=== PATIENT | female | born 1945 | race Caucasian/White ===

== ENCOUNTER → 2016-12-26 14:16 | Outpatient (CLI) | payer MEDICARE, OTHER ==
[2015-12-22 07:34] VITALS: BMI 23.3
[~2016-12-26 14:16] MED LIST: ANTIVERT25 MG PO; ASPIRIN EC81 MG PO; ATROVENT HFA12.9 GM; BYSTOLIC5 MG PO; CENTRUM SILVER1 TA2 PO; CLARITIN 10 MG10 MG PO; COMBIVENT INH14.7 GM; FLUTICASONE PRO16 GM NASAL; HUMALOG MIX 50/53 ML SC; HUMULIN N100 U/ML SC; KLONOPIN1 MG PO; LEVEMIR100 U/M1 SC; MINERAL OIL25 ML PO; MYRBETRIQ25 MG PO; NITROLINGUAL SP12 GM SL; NYSTATIN ORAL SU5 ML PO; OXYCODONE HCL10 MG PO; OYST-CAL-5001 TAB; PAMELOR10 MG PO; PEPCID20 MG PO; PLAVIX75 MG PO; PREMARIN45 GM VG; PREVACID30 MG PO; RESTORIL15 MG PO
== END | disposition home or self-care (01) ==
LOC: D.MRI 14:16
DX: G31.84 Mild cognitive impairment of uncertain or unknown etiology (principal)

== ENCOUNTER → 2017-03-12 09:23 | Outpatient (CLI) | payer MEDICARE, OTHER ==
[2015-12-22 07:34] VITALS: BMI 23.3
== END | disposition home or self-care (01) ==
LOC: D.RT 09:00
DX: J45.909 Unspecified asthma, uncomplicated (principal)

== ENCOUNTER → 2017-03-21 09:10 | Outpatient (CLI) | payer MEDICARE, OTHER | END | disposition home or self-care (01) | LOC: D.CATH 09:10 | DX: I25.119 Atherosclerotic heart disease of native coronary artery with unspecified angina pectoris (principal); J44.9 Chronic obstructive pulmonary disease, unspecified; I10 Essential (primary) hypertension; E11.9 Type 2 diabetes mellitus without complications; F17.200 Nicotine dependence, unspecified, uncomplicated; Z01.812 Encounter for preprocedural laboratory examination ==

== ENCOUNTER 2017-11-13 18:55 | Emergency (ER) | payer MEDICARE, OTHER ==
[2017-03-21 10:05] VITALS: BMI 24.6
== END 2017-11-13 21:25 | disposition home or self-care (01) ==
LOC: D.ER 18:55
DX: S70.02XA Contusion of left hip, initial encounter (principal); W19.XXXA Unspecified fall, initial encounter; Y93.89 Activity, other specified; Y92.89 Other specified places as the place of occurrence of the external cause; M51.36 Other intervertebral disc degeneration, lumbar region; M54.5 Low back pain; F17.200 Nicotine dependence, unspecified, uncomplicated

== ENCOUNTER → 2017-11-19 10:49 | Outpatient (CLI) | payer MEDICARE, OTHER ==
[2017-03-21 10:05] VITALS: BMI 24.6
== END | disposition home or self-care (01) ==
LOC: D.MRI 10:49
DX: S32.009A Unspecified fracture of unspecified lumbar vertebra, initial encounter for closed fracture (principal)

== ENCOUNTER 2018-01-20 13:46 | Emergency (ER) | payer MEDICARE, OTHER ==
[~2018-01-20] VITALS: Ht 165.1 cm; Wt 46.8 kg
[2018-01-20 13:58] VITALS: BP 133/70; Ht 165.1 cm; Wt 46.8 kg
[2018-01-20] MEDS ORDERED: ALENDRONATE SOD70 MG PO (14:00)
[2018-01-20] MEDS ORDERED: BIOTIN5 MG PO (14:01)
[2018-01-20] MEDS ORDERED: ZITHROMAX250 MG PO (14:01)
[2018-01-20] MEDS ORDERED: CALCIUM 600 +1 EAC3 PO (14:01)
[2018-01-20] MEDS ORDERED: ZOFRAN4 MG PO (14:03)
[2018-01-20] MEDS ORDERED: MEDROL4 MG PO (14:03)
[2018-01-20] MEDS ORDERED: MOVANTIK25 MG PO (14:04)
[2018-01-20] MEDS ORDERED: RESTORIL15 MG PO (14:05)
[2018-01-20 16:51] LABS: BASOPHILS 0.2 % (0-2); EOSINOPHILS 0.1 % (0-7); HEMOGLOBIN 14.6 g/dL (12-16); IMMATURE GRANULOCYTES 0.4 % (0-5); LYMPHOCYTES 12.9 % (15-50); MCH 32.5 pg (26.0-34.0); MCHC 35.6 g/dL (31.0-37.0); MCV 91.3 fL (80.0-100.0); MEAN PLATELET VOLUME 10.5 fL (7.4-10.4); NEUTROPHILS 81.4 % (40-80); PLATELET COUNT 399 10x3/uL (130-400); RBC 4.49 10x6/uL (4.00-5.40); RDW 14.2 % (11.5-14.5); WBC 12.5 10x3/uL (4.8-10.8)
[2018-01-20 17:22] LABS: ALBUMIN 3.4 g/dL (3.4-5.0); ANION GAP 12.9 mmol/L (8-16); BILIRUBIN - TOTAL 0.39 mg/dL (0.2-1.3); CALCIUM 9.7 mg/dL (8.5-10.1); CARBON DIOXIDE 29.2 mmol/L (21.0-32.0); CREATININE - SERUM 0.8 mg/dL (0.6-1.3); POTASSIUM - SERUM 4.1 mmol/L (3.5-5.1)
[2018-01-20 17:30] LABS: THYROID STIMULATING HORMONE 0.62 uIU/mL (0.36-3.74)
== END 2018-01-20 17:02 | disposition left against medical advice (07) ==
LOC: D.ER 13:46
PROVIDERS: Emergency Medicine
DX: K56.41 Fecal impaction (principal); K59.00 Constipation, unspecified; E11.8 Type 2 diabetes mellitus with unspecified complications; I10 Essential (primary) hypertension; J44.9 Chronic obstructive pulmonary disease, unspecified; F17.200 Nicotine dependence, unspecified, uncomplicated

== ENCOUNTER 2018-01-27 12:51 | Outpatient (CLI) | payer MEDICARE, OTHER ==
[~2018-01-27] VITALS: Ht 162.6 cm; Wt 46.8 kg
[~2018-01-27 12:51] MED LIST changes: +ALENDRONATE SOD70 MG PO; +BIOTIN5 MG PO; +CALCIUM 600 +1 EAC3 PO; +MEDROL4 MG PO; +MOVANTIK25 MG PO; +ZITHROMAX250 MG PO; +ZOFRAN4 MG PO
[2018-01-27 13:41] VITALS: BP 117/58; Ht 162.6 cm; Wt 46.8 kg
== END 2018-01-27 14:15 | disposition home or self-care (01) ==
LOC: D.OPS 12:51
DX: M81.0 Age-related osteoporosis without current pathological fracture (principal)

== ENCOUNTER → 2018-02-10 08:55 | Outpatient (CLI) | payer MEDICARE, OTHER ==
[2018-01-27 13:41] VITALS: BMI 17.7
== END | disposition home or self-care (01) ==
LOC: D.US 08:55
DX: N30.91 Cystitis, unspecified with hematuria (principal)

== ENCOUNTER 2018-03-06 08:43 | Outpatient (CLI) | payer MEDICARE, OTHER ==
[~2018-03-06] VITALS: Ht 162.6 cm; Wt 52.7 kg
--- NOTE | ~2018-03-06 | HEMODYNAMI ---
PATIENT:VERNON BOLTON MEDICAL RECORD: [id number] : 43 LOCATION:D.CAT ADMISSION DATE: 03/06/18 Generatedon:03/06/201811:40 Patient name: VERNON BOLTON Patient #: [id number] SSN: : Date of study: 03/06/2018 Page: Of Hemodynamic Procedure Report Patient Data Patient Demographics Procedure consent was obtained First Name: VERNON Gender: Female Last Name: HOANG : 1945 Middle Initial: JAY Age: 72 year(s) Patient #: [id number] Race: Additional ID: [id number] Contact details Address: [address] [place] [address] [facility] State: [place] City: [place] Zip code: [address] Past Medical History Allergies Allergen Reaction Date Comments Reported Other allergy 03/21/2017 DEMEROL, IBUPROFEN, SULFA Admission Admission Data Admission Date: 03/06/2018 Admission Time: 8:43 Height (in.): 65 BSA: 1.57 (m2) Height (cm.): 165.1 BMI: 19.3 (kg/m2) Weight (lbs.): 116 Weight (kg.): 52.62 Procedure Procedure Types Cath Procedure Diagnostic Procedure [facility] w/Coronaries PCI Procedure Coronary Stent Coronary Stent Initial Procedure Description Procedure Date Procedure Date: 03/06/2018 Procedure Start Time: 11:14 Procedure End Time: 11:33 Procedure Staff Name Function Leonie Talamantes RT Scrub Мария Simmons RN Nurse Shashank Delaney MD Performing Physician Ana Cristina Franco RT Monitor Lexx Dominique RT Label Printing Machinist Procedure Data Cath Procedure Fluoroscopy Diagnostic fluoroscopy Total fluoroscopy Time: 5.2 time: 5.2 min min Diagnostic fluoroscopy Total fluoroscopy dose: 827 dose: 827 mGy mGy Contrast Material Contrast Material Type Amount (ml) Isovue 300 134 Entry Location Entry Primary Successful Side Size Upsize Upsize Entry Closure Succes sful Closure Location (Fr) 1 (Fr) 2 (Fr) Remarks Device Remarks Femoral Right 5 Fr 6 Fr 7 Fr Exoseal artery Short Short Estimated blood loss: 10 ml Diagnostic catheters Device Type Used For End Catheter Placement MULTIPACK Pigtail 5 Fr Procedure catheter MULTIPACK JL 4.0 5Fr Procedure catheter MULTIPACK 3DRC 5Fr catheter MULTIPACK Pigtail 5 Fr Procedure catheter Procedure Complications No complications Procedure Medications Medication Administration Route Dosage Oxygen etCO2 Nasal cannula 2 l/min Lidocaine 2% added to field 20 Heparin Flush Bag added to field 2 bags (1000units/500ml NS) 0.9% NaCl I.V. 100 ml/hr Versed I.V. 0.5 mg Fentanyl I.V. 100 mcg Fentanyl I.V. 100 mcg Versed I.V. 0.5 mg Fentanyl I.V. 100 mcg Heparin Bolus I.V. 4000 units Fentanyl I.V. 100 mcg Hemodynamics Rest O2 Consumption: Estimated: 142.24 (ml/min) O2 Consumption indexed: Estimated:90. 6 (ml/min/m) Heart Rate: 68 (bpm) Snapshots Pre Cath Intra NCS Post Cath Vital Signs Time Heart Resp SPO2 etCO2 NIBP (mmHg) Rhythm Pain Sedation Rate (ipm) (%) (mmHg) Status Level (bpm) 11:07:55 74 28 98 0 167/76(137) NSR 0 (11) 10(A) , No pain 11:12:17 66 21 100 27.7 157/65(96) NSR 0 (11) 10(A) , No pain 11:16:33 72 12 100 33 132/70(112) NSR 0 (11) 10(A) , No pain 11:21:50 73 19 100 36 148/55(92) NSR 0 (11) 10(A) , No pain 11:27:20 87 15 100 29.3 144/68(109) NSR 0 (11) 10(A) , No pain 11:31:34 78 13 98 15 147/66(104) NSR 0 (11) 10(A) , No pain Medications Time Medication Route Dose Verified Delivered Reason Notes Effectiveness by by 11:11:56 Oxygen etCO2 2 Shashank Мария used for Nasal l/min Elaina Simmons flight surveyor cannula 11:12:43 Lidocaine 2% added 20ml Shashank Encarnacion for local to vial Elaina Delaney MD anesthetic field 11:12:49 Heparin Flush added 2 Shashank Shashank used for Bag to bags Elaina Delaney MD procedure (1000units/500ml field NS) 11:12:58 0.9% NaCl I.V. 100 Shashank Buffie Per physician ml/hr Elaina Simmons RN 11:14:07 Versed I.V. 0.5 Shashank Buffie for sedation mg Elaina Simmons RN 11:14:13 Fentanyl I.V. 100 Shashank Buffie for sedation mcg Elaina Simmons RN 11:17:09 Fentanyl I.V. 100 Shashank Buffie for sedation mcg Ealina Simmons RN 11:17:14 Versed I.V. 0.5 Shashank Buffie for sedation mg Elaina Simmons RN 11:20:21 Fentanyl I.V. 100 Shashank Buffie for sedation mcg Elaina Simmons RN 11:22:08 Heparin Bolus I.V. 4000 Shashank Buffie for verif ied units Elaina Simmons RN anticoagulation with dr delaney 11:29:14 Fentanyl I.V. 100 Shashank Buffie for sedation mcg Elaina Simmons RN Procedure Log Time Note 10:52:06 Diagnostic Cath status Elective 10:52:07 Lexx Suit RT(R) sent for patient. Start room use. 10:52:09 Time tracking: Regular hours (M-F 7:00 - 5:00) 10:52:14 Plan of Care:Hemodynamics will remain stable., Cardiac rhythm will remain stable., Comfort level will be maintained., Respiratory function will remain adequate., Patient/ family verbilizes understanding of procedure., Procedure tolerated without complication., Recovers from procedure without complications.. 10:52:19 Patient received from Pre/Post Procedure Room to CCL 2 Alert and oriented. Tansferred to table in Supine position. 10:52:21 Correct patient and procedure confirmed by team. 10:52:21 Warm blankets applied, and anoop hugger turned on for patient comfort. 10:52:29 H&P Date Dictated: 03/05/2018 Within 30 days and on chart., H&P Addendum completed by physician on day of procedure. (MUST COMPLETE FOR ALL OUTPATIENTS). 10:52:31 Pre-procedure instructions explained to patient. 10:52:32 Family in waiting room. 10:52:41 Patient NPO since Midnight. 11:04:09 Pt states she is not allergic to Versed that it "just hangs around like a bad drunk". pt states she did well with the sedation given last time. 11:06:44 Signed procedure consent form obtained from patient. 11:06:45 ECG and BP/O2 sat monitors applied to patient. 11:06:46 Vital chart was started 11:06:48 Baseline sample Acquired. 11:06:56 Rhythm: sinus rhythm 11:06:58 Full Disclosure recording started 11:07:06 Is the patient allergic to Iodine/contrast media? No. 11:07:07 Was the patient premedicated? Yes 11:07:12 Is patient on blood thinner?Yes 11:07:15 ACC The patient was administered the following blood thiners within the last 24 hours: ACCPlavix 11:07:21 Patient diabetic? Yes. 11:07:23 If diabetic: On Metformin? No 11:07:31 Snore? No 11:07:32 Sleep apnea? No 11:07:38 Airway obstruction? Yes COPD 11:07:52 Dentures? Yes in tight 11:07:57 Patient pain scale 0/10 ?. 11:08:33 IV patent on arrival in right antecubital with 0.9% NaCl at O. 11:08:42 Lab results completed and on chart. 11:08:46 Right groin area was prepped with chlora-prep and draped in sterile fashion 11:08:47 Sharps counted by scrub and verified by R.N. 11:08:47 Alarms reviewed by R. N. 11:08:48 Physician paged 11:09:34 Use device set Femoral Dx 11:09:35 ACIST Syringe (50223) opened to sterile field. 11:09:36 Medline Cath Pack ([id number]) opened to sterile field. 11:09:36 Bag Decanter (2002) opened to sterile field. 11:09:37 DIAGNOSTIC WIRE .035 260cm J wire (568280) opened to sterile field. 11:09:38 ACIST Hand Control (14494) opened to sterile field. 11:09:39 DIAGNOSTIC Multipack 5Fr catheter set (BO5079) opened to sterile field. 11:09:39 ACIST Manifold (49237) opened to sterile field. 11:09:40 PERCUTANEOUS ENTRY 19GA needle opened to sterile field. 11:09:40 Tegaderm 4 x 4 (1626W) opened to sterile field. 11:09:41 MICROPUNCTURE 4FR Cook (O20011) opened to sterile field. 11:09:52 SHEATH Prelude 5Fr 0.035 ([id number]-2J-80-035) opened to sterile field. 11:10:55 Patient Height : 65 inches 11:11:05 Patient Weight : 116 lbs 11:11:56 Oxygen 2 l/min etCO2 Nasal cannula was administered by Мария Simmons RN; used for procedure; 11:12:02 --------ALL STOP TIME OUT------ 11:12:02 Physician arrived 11:12:03 Final Timeout: patient, procedure, and site verified with staff and physician. All members of the team are in agreement. 11:12:06 Right groin site verified by team. 11:12:10 Physical assessment completed. ASA score P 2 - A patient with mild systemic disease as per Shashank Delaney MD. 11:12:43 Lidocaine 2% 20ml vial added to field was administered by Shashank Delaney MD; for local anesthetic; 11:12:49 Heparin Flush Bag (1000units/500ml NS) 2 bags added to field was administered by Shashank Delaney MD; used for procedure; 11:12:58 0.9% NaCl 100 ml/hr I.V. was administered by Мария Simmons RN; Per physician; 11:14:07 Versed 0.5 mg I.V. was administered by Мария Simmons RN; for sedation; 11:14:13 Fentanyl 100 mcg I.V. was administered by аМрия Simmons RN; for sedation; 11:14:38 Procedure started. 11:14:42 Local anesthetic to right femoral artery with Lidocaine 2% by Shashank Delaney MD.INITIAL ACCESS ONLY 11:15:00 A 5 Fr sheath was inserted into the Right Femoral artery 11:16:10 A MULTIPACK Pigtail 5 Fr catheter was advanced over the wire and used for Procedure. 11:16:18 EF : 40 % 11:16:22 LV gram done using STORY 11:16:24 Catheter removed. 11:16:50 A MULTIPACK JL 4.0 5Fr catheter was advanced over the wire and used for Procedure. 11:17:09 Fentanyl 100 mcg I.V. was administered by Мария Simmons RN; for sedation; 11:17:14 Versed 0.5 mg I.V. was administered by Мария Simmons RN; for sedation; 11:18:01 LCA angiography performed. 11:18:02 Catheter removed. 11:18:27 A MULTIPACK 3DRC 5Fr catheter was advanced over the wire and used for . 11:18:31 RCA angiography performed. 11:18:32 Catheter removed. 11:18:40 Sheath upsized to a 6 Fr Short. 11:19:50 INFLATOR Merit BasixCompak (TK1611) opened to sterile field. 11:19:51 CHOICE PT Extra Support 182cm wire ([id number]) opened to sterile field. 11:20:16 GUIDE 6FR 3DRC catheter ([id number]) opened to sterile field. 11:20:21 Fentanyl 100 mcg I.V. was administered by Мария Simmons RN; for sedation; 11:20:39 A MULTIPACK Pigtail 5 Fr catheter was advanced over the wire and used for Procedure. 11:20:56 Left leg runoff performed. 11:21:06 Right leg runoff performed. 11:21:10 Catheter removed. 11:21:11 Proceeding to intervention. 11:22:08 Heparin Bolus 4000 units I.V. was administered by Мария Simmons RN; for anticoagulation; verified with dr delaney 11:22:30 6 Fr 3DRC guide catheter was inserted over the wire 11:22:35 choice pt wire advanced. 11:24:46 Wire removed. unable to get back-up support 11:24:49 Guide Catheter removed. unable to get back-up support 11:25:20 GUIDE 7FR AR 2.0 catheter (PI6ZF24) opened to sterile field. 11:25:23 SHEATH 7FR Kermit (DFY381) opened to sterile field. 11:25:37 Sheath upsized to a 7 Fr Short. 11:25:53 7 Fr AR2 guide catheter was inserted over the wire 11:25:59 choice ex wire advanced. 11:27:43 Place stent Inflation Number: 1 A DEYANIRA RX 3.5 x 18 stent ([id number]) was prepped and advanced across the Dist RCA. The stent was deployed at 20 KERRY for 0:11 (min:sec). ::46 Inflation number: 2 The stent balloon was then re-inflated across the Dist RCA to 0 KERRY for 0:00 (min:sec). 11:28:07 Inflation number: 3 The stent balloon was then re-inflated across the Dist RCA to 21 KERRY for 0:06 (min:sec). 11:28:25 Inflation number: 4 The stent balloon was then re-inflated across the Dist RCA to 21 KERRY for 0:13 (min:sec). 11:29:14 Fentanyl 100 mcg I.V. was administered by Мария Simmons RN; for sedation; 11:29:16 Inflation number: 5 The stent balloon was then re-inflated across the Dist RCA to 23 KERRY for 0:09 (min:sec). 11:29:56 EXOSEAL 7Fr (EX700) opened to sterile field. 11:30:06 Wire removed. 11:30:07 Guide catheter removed. 11:30:17 Sheath removed intact; hemostasis achieved with Exoseal to the Right Femoral artery. 11:30:19 Procedure ended.(Physican Out) 11:30:27 Fluoroscopy time 05.20 minutes. 11:30:32 Fluoroscopy dose: 827 mGy 11:30:32 Flurop Dose total: 827 11:30:36 Contrast amount:Isovue 300 134ml. 11:30:37 Sharps counted by scrub and verified by R.N. 11:31:00 Insertion/operative site no bleeding no hematoma. 11:31:05 Post-op/insertion site Right Femoral artery dressed using a 4 x 4 and Tegaderm. 11:31:09 Post-procedure physical assessment completed. ASA score P 2 - A patient with mild systemic disease as per Shashank Delaney MD. 11:32:42 Estimated blood loss: 10 ml 11:32:43 Post procedure instruction explained to patient.Patient verbalizes understanding. 11:32:53 Procedure type changed to Cath procedure, Diagnostic procedure, LHC, LHC w/Coronaries, PCI procedure, Coronary Stent, Coronary Stent Initial 11:32:55 Procedure and supply charges have been captured, reviewed, submitted and are correct. 11:33:31 Procedure Complication : No complications 11:33:34 Vital chart was stopped 11:33:35 See physician's report for complete and final results. 11:33:36 Report given to Pre/Post Procedure Room. 11:33:39 Patient transfered to Pre/Post Procedure Room with Stretcher. 11:33:45 Full Disclosure recording stopped 11:33:45 Procedure ended. Intervention Summary Intervention Notes Time ActionType Lesion and Equipment Used Action# Pressure Duration Attributes 11:27:43 Place stent Dist RCA DEYANIRA RX 3.5 x 1 20 00:11 18 stent ([id number]) 11:27:46 Reinflate Dist RCA DEYANIRA RX 3.5 x 2 0 00:00 stent 18 stent balloon ([id number]) 11:28:07 Reinflate Dist RCA DEYANIRA RX 3.5 x 3 21 00:06 stent 18 stent balloon ([id number]) 11:28:25 Reinflate Dist RCA DEYANIRA RX 3.5 x 4 21 00:13 stent 18 stent balloon ([id number]) 11:29:16 Reinflate Dist RCA DEYANIRA RX 3.5 x 5 23 00:09 stent 18 stent balloon ([id number]) Device Usage Item Name Manufacture Quantity Catalog Number Hospital Part Current Minimal Lot# / Charge Number Stock Stock Serial# Code ACIST Syringe Acist 1 39775 896964 396519 788319 20 (32985) Medical Systems Inc Bag Decanter Microtek 1 2001S 392228 19738 956441 5 (2001S) Medical Inc. Medline Cath Cardinal 1 [id number] 845768 77922 074122 5 Pack Health ([id number]) DIAGNOSTIC WIRE St Patrice 1 153419 898620 389556 173369 30 .035 260cm J wire (952280) ACIST Hand Acist 1 25602 191841 550851 170687 5 Control (81766) Medical Systems Inc ACIST Manifold Acist 1 35629 014442 240153 674871 5 (16948) Medical Systems Inc DIAGNOSTIC Cardinal 1 EW2161 187818 61576 458112 30 Multipack 5Fr Health catheter set ([id number]) Tegaderm 4 x 4 3M 1 1626W 787685 665745 164607 5 (1626W) PERCUTANEOUS Ajaline Medical 1 X47999 666221 367364 5 ENTRY 19GA needle MICROPUNCTURE Ajaline Medical 1 B89702 007176 147067 814409 5 4FR Ajaline ([id number]) SHEATH Prelude Merit 1 RHI-3Z-53-035 622620 247884 587012 5 5Fr 0.035 Medical (HEC-7O-39-035) MULTIPACK Cardinal 1 019822 5 Pigtail 5 Fr Health catheter MULTIPACK JL Cardinal 1 593184 5 4.0 5Fr Health catheter MULTIPACK 3DRC Cardinal 1 787286 5 5Fr catheter Health INFLATOR [facility] 1 GY8840 473346 807504 870758 15 [facility] (VN3485) CHOICE PT Extra [place] 1 [id number] 763317 439546 991085 5 Support 182cm Scientific wire ([id number]) GUIDE 6FR 3DRC Medtronic 1 [id number] 140699 120710 095815 1 catheter ([id number]) GUIDE 7FR AR Medtronic 1 [id number] 974835 570899 401946 0 2.0 catheter (WX6QD08) SHEATH 7FR Terumo 1 CSW328 791658 116604 035146 5 Kermit (PVE435) DEYANIRA RX 3.5 x Medtronic 1 [id number] 675617 0575020 425600 5 [id number] 18 stent ([id number]) EXOSEAL 7Fr Cardinal 1 EX700 203598 294238 884391 5 (EX700) Health Signature Audit [place] Stage Time Signature Unsigned Intra-Procedure 03/06/2018 Ana Cristina Franco 11:37:34 AM RT(R) Signatures Monitor : Ana Cristina Franco Signature : RT Date : Time : [facility] [address] [place] [address]
--- NOTE | ~2018-03-06 | OP ---
PATIENT NAME: VERNON BOLTON MEDICAL RECORD: [id number] :43 LOCATION:D.CAT ADMISSION DATE: SURGEON: SOPHIA JONES MD DATE OF OPERATION: 03/06/2018 DATE OF SERVICE: 03/06/2018 PROCEDURES: 1. PTCA stent RCA. 2. Left heart catheterization. 3. Selective coronary angiography. 4. Left ventriculogram. INDICATION: Angina and coronary artery disease. PROCEDURE IN DETAIL: After informed consent was obtained and after a detailed description of risks, benefits as well as alternative therapies, the patient elected to proceed with angiogram and angioplasty. The right femoral area was prepped and draped in normal sterile fashion. The right femoral artery was cannulated via modified Seldinger technique with placement of 6-Syriac sheath. All catheters exchanged through this sheath. FINDINGS: The left ventriculogram was performed in standard 30-degree STORY view, reveals good cardiac wall motion throughout all segments. Overall ejection fraction estimated 60%. SELECTIVE CORONARY ANGIOGRAPHY: 1. Left main is with no significant angiographic disease. 2. Left anterior descending has a 70-75% stenosis proximally. 3. Left circumflex has previously placed stent. This is widely patent with no significant restenosis. No disease elsewise at the circumflex or its branches. 4. The right coronary has previously placed stents with 85% in-stent restenosis brought in the mid vessel. PTCA STENT OF THE RCA: The stent used was a 3.5 x 18 mm [place]. Result was 0% residual stenosis. OVERALL IMPRESSION: Successful percutaneous transluminal coronary angioplasty stent of the right coronary artery going from 85% initial stenosis to 0% residual. PROCEDURE: 1. Aortofemoral runoff. 2. Abdominal aortography. INDICATION: Leg pain compatible with claudication. PROCEDURE IN DETAIL: After informed consent was obtained and after a detailed description of risks, benefits as well as alternative therapies, the patient elected to proceed with angiogram and aortofemoral runoff. FINDINGS: The catheter was advanced to the abdominal aorta, pulled down for aortofemoral runoff. Abdominal aorta reveals no significant abdominal aortic disease, no significant renal artery stenosis. OPERATIVE REPORT [id number] VERNON BOLTON RIGHT LEG: A. Iliac: The common internal and external iliacs have moderate irregularities, but no flow-limiting stenosis. B. Femoral system: The common superficial and deep femoral have moderate irregularities, but no flow-limiting stenosis. B. Popliteal and infrapopliteal is widely patent with good thrill and runoff to the foot. LEFT LEG: A. Iliac: The common internal and external iliacs have moderate irregularities, but no flow-limiting stenosis. B. Femoral system: The common superficial and deep femoral have moderate irregularities, but no flow-limiting stenosis. B. Popliteal and infrapopliteal is widely patent with good thrill and runoff to the foot. OVERALL IMPRESSION: No significant peripheral vascular disease is present. Leg pain is secondary to her back problems. TRANSINT:[id number] Voice Confirmation ID: [id number] DOCUMENT ID: [id number] SOPHIA JONES MD at 1843 CC: [id number] DICTATION DATE: 03/06/18 1140 DIRECTOR CENTER: 03/06/18 1152 [facility] [address] [place] [address]
[2018-03-06 09:47] VITALS: BP 145/48; Ht 162.6 cm; Wt 52.7 kg
[2018-03-06 10:31] LABS: CALC OSMOLALITY 269 mosm/kg (275-300); CALCIUM 8.4 mg/dL (8.5-10.1); CHLORIDE - SERUM 100 mmol/L (98-107); CREATININE - SERUM 0.7 mg/dL (0.6-1.3); POTASSIUM - SERUM 4.4 mmol/L (3.5-5.1); SODIUM 133 mmol/L (136-145); UREA NITROGEN 9 mg/dL (7-18); eGFR NON AFRICAN AMERICAN 87 mL/min (90-120)
[2018-03-06 10:32] LABS: GLUCOSE 183 mg/dL (74-106)
[2018-03-06 11:21] LABS: BASOPHILS 0.4 % (0-2); EOSINOPHILS 0.7 % (0-7); HEMATOCRIT 36.4 % (36.0-48.0); HEMOGLOBIN 12.3 g/dL (12-16); IMMATURE GRANULOCYTES 0.1 % (0-5); LYMPHOCYTES 22.8 % (15-50); MCH 32.5 pg (26.0-34.0); MCHC 33.8 g/dL (31.0-37.0); MCV 96.3 fL (80.0-100.0); MEAN PLATELET VOLUME 10.8 fL (7.4-10.4); MONOCYTES 10.2 % (2-11); NEUTROPHILS 65.8 % (40-80); PLATELET COUNT 388 10x3/uL (130-400); RBC 3.78 10x6/uL (4.00-5.40); RDW 13.9 % (11.5-14.5); WBC 6.9 10x3/uL (4.8-10.8)
[2018-03-06] MEDS ORDERED: PLAVIX75 MG PO (11:44)
== END 2018-03-06 15:45 | disposition home or self-care (01) ==
LOC: D.CATH 08:43
PROVIDERS: Internal Medicine Interventional Cardiology
DX: I25.119 Atherosclerotic heart disease of native coronary artery with unspecified angina pectoris (principal); T82.855A Stenosis of coronary artery stent, initial encounter; Z01.812 Encounter for preprocedural laboratory examination
CPT/HCPCS: 93458; C9600

== ENCOUNTER 2018-03-30 07:48 | Outpatient (CLI) | payer MEDICARE, OTHER ==
[~2018-03-30] VITALS: Ht 162.6 cm; Wt 50.0 kg
--- NOTE | ~2018-03-30 | OP ---
PATIENT NAME: VERNON BOLTON MEDICAL RECORD: [id number] :43 LOCATION:D.CAT ADMISSION DATE: SURGEON: SOPHIA JONES MD DATE OF OPERATION: 03/30/2018 PROCEDURES: 1. PTCA and stent to the LAD. 2. Selective coronary angiography. INDICATIONS: Angina and coronary artery disease. PROCEDURE IN DETAIL: After informed consent was obtained and after a detailed description of risks, benefits as well as alternative therapies, the patient elected to proceed with angiogram and angioplasty. The right femoral area was prepped and draped in normal sterile fashion. Right femoral artery was cannulated via modified Seldinger technique with placement of 6-Martiniquais sheath. All catheters exchanged through this sheath. FINDINGS: Left anterior descending has 85% stenosis proximally. This was addressed with a 2.5 x 15 mm [place] stent. Result was 0% residual stenosis. OVERALL IMPRESSION: Successful percutaneous transluminal coronary angioplasty and stent of the left anterior descending going from 85% initial stenosis to 0% residual stenosis. TRANSINT:[id number] Voice Confirmation ID: [id number] DOCUMENT ID: [id number] SOPHIA JONES MD at 1823 CC: [id number] DICTATION DATE: 03/30/18918 PREVENTIVE MEDICINE OFFICER: 03/30/18 1018 [facility] CLI 03/30/18 [id number] [place] [address]
--- NOTE | ~2018-03-30 | HEMODYNAMI ---
PATIENT:VERNON BOLTON MEDICAL RECORD: [id number] : 43 LOCATION:DCT ADMISSION DATE: 03/30/18 Generatedon:03/30/20189:26 Patient name: VERNON BOLTON Patient #: [id number] SSN: : Date of study: 03/30/2018 Page: Of Hemodynamic Procedure Report Patient Data Patient Demographics Procedure consent was obtained First Name: VERNON Gender: Female Last Name: HOANG : 1945 [facility] Initial: JAY Age: 72 year(s) Patient #: [id number] Race: Additional ID: [id number] Contact details Address: [address] [place] [address] [facility] State: [place] City: [place] Zip code: [address] Past Medical History Allergies Allergen Reaction Date Comments Reported Other allergy 03/21/2017 DEMEROL, IBUPROFEN, SULFA Other allergy 03/30/2018 DEMEROL, IBUPROFEN, SULFA, VERSED Admission Admission Data Admission Date: 03/30/2018 Admission Time: 7:48 Height (in.): 5.5 BSA: 0.26 (m2) Height (cm.): 13.97 BMI: 2696.07 (kg/m2) Weight (lbs.): 116 Weight (kg.): 52.62 Lab Results Lab Result Date: 03/30/2018 Lab Result Time: 0:00 Biochemistry Name Units Result Min Max BUN mg/dl 9 --(*---)-- 7 18 Creatinine mg/dl 0.7 --(*---)-- 0.6 1.3 CBC Name Units Result Min Max Hemoglobin g/dl 11.4 *-(----)-- 13.5 17.5 Procedure Procedure Types Cath Procedure PCI Procedure Coronary Stent Coronary Stent Initial Procedure Description Procedure Date Procedure Date: 03/30/2018 Procedure Start Time: 9:13 Procedure End Time: 9:22 Procedure Staff Name Function Zoltan Epstein RT Property Specialist Мария Simmons RN Nurse Shashank Delaney MD Performing Physician Renee Mott RT Scrub Lexx Dominique RT Monitor Procedure Data Cath Procedure Fluoroscopy Diagnostic fluoroscopy Total fluoroscopy Time: 1 time: 1 min min Diagnostic fluoroscopy Total fluoroscopy dose: dose: 57.58 mGy 57.58 mGy Contrast Material Contrast Material Type Amount (ml) Isovue 300 29 Entry Location Entry Primary Successful Side Size Upsize Upsize Entry Closure Succes sful Closure Location (Fr) 1 (Fr) 2 (Fr) Remarks Device Remarks Femoral Right 6 Fr Exoseal artery Short Procedure Complications No complications Procedure Medications Medication Administration Route Dosage Oxygen etCO2 Nasal cannula 2 l/min Lidocaine 2% added to field 20 Heparin Flush Bag added to field 2 bags (1000units/500ml NS) 0.9% NaCl I.V. 100 ml/hr Versed I.V. 1 mg Fentanyl I.V. 50 mcg Heparin Bolus I.V. 4000 units Fentanyl I.V. 50 mcg Hemodynamics Rest HGB: 11.4 (g/dl) O2 Consumption: Estimated: 23.16 (ml/min) O2 Consumption indexe d: Estimated:89.08 (ml/min/m) Heart Rate: 64 (bpm) Snapshots Pre Cath Intra NCS Post Cath Vital Signs Time Heart Resp SPO2 etCO2 NIBP (mmHg) Rhythm Pain Sedation Rate (ipm) (%) (mmHg) Status Level (bpm) 9:04:31 65 15 98 12.7 168/148(164) NSR 0 (11) 10(A) , No pain 9:08:57 62 16 96 21.7 163/68(122) NSR 0 (11) 10(A) , No pain 9:13:27 62 13 93 24.7 140/61(93) NSR 0 (11) 9(A) , No pain 9:17:48 58 19 95 27.7 136/61(103) NSR 0 (11) 9(A) , No pain 9:20:50 61 14 95 27.7 129/57(89) NSR 0 (11) 10(A) , No pain Medications Time Medication Route Dose Verified Delivered Reason Notes Effectiveness by by 9:05:57 Oxygen etCO2 2 Shashank Hsieh used for Nasal l/min Elaina Simmons wheel and caster repairer cannula 9:06:04 Lidocaine 2% added 20ml Shashank Encarnacion for local to vial Elaina Delaney MD anesthetic field 9:06:10 Heparin Flush added 2 Shashank Encarnacion used for Bag to bags Elaina Delaney MD procedure (1000units/500ml field NS) 9:06:19 0.9% NaCl I.V. 100 Shashank Beccakay Per physician ml/hr Elaina Simmons RN 9:11:42 Versed I.V. 1 mg Shashank Beccaie for sedation Elaina Simmons RN 9:11:48 Fentanyl I.V. 50 Shashank Buffie for sedation mcg Elaina Simmons RN 9:13:30 Heparin Bolus I.V. 4000 Shashank Buffie for verifi ed units Elaina Simmons RN anticoagulation with dr delaney 9:15:23 Fentanyl I.V. 50 Shashank Hudsonie for sedation mcg Elaina Simmons RN Procedure Log Time Note 8:38:16 Time tracking: Regular hours (M-F 7:00 - 5:00) 8:38:20 Plan of Care:Hemodynamics will remain stable., Cardiac rhythm will remain stable., Comfort level will be maintained., Respiratory function will remain adequate., Patient/ family verbilizes understanding of procedure., Procedure tolerated without complication., Recovers from procedure without complications.. 8:38:22 Signed procedure consent form obtained from patient. 8:39:38 H&P Date Dictated: 03/04/2018 Within 30 days and on chart., H&P Addendum completed by physician on day of procedure. (MUST COMPLETE FOR ALL OUTPATIENTS). 8:39:46 Patient Height : 5.5 inches 8:39:51 Patient Weight : 116 lbs 8:40:10 Patient allergic to Other allergyDEMEROL, IBUPROFEN, SULFA, VERSED 8:41:49 Lab Result : Hemoglobin 11.4 g/dl 8:41:49 Lab Result : Creatinine 0.7 mg/dl 8:41:49 Lab Result : BUN 9 mg/dl 8:46:18 Procedure type changed to Cath procedure, PCI procedure, Coronary Stent, Coronary Stent Initial 8:48:45 Lexx Dominique RT(R) sent for patient. Start room use. 8:53:32 Patient received from Pre/Post Procedure Room to CCL 3 Alert and oriented. Tansferred to table in Supine position. 8:53:34 Correct patient and procedure confirmed by team. 8:53:34 Warm blankets applied, and anoop hugger turned on for patient comfort. 8:53:35 ECG and BP/O2 sat monitors applied to patient. 9:01:50 Vital chart was started 9:01:51 Baseline sample Acquired. 9:01:53 Rhythm: sinus rhythm 9:01:54 Full Disclosure recording started 9:01:55 Pre-procedure instructions explained to patient. 9:01:56 Pre-op teaching completed and patient verbalized understanding. 9:01:58 Family in waiting room. 9:01:59 Patient NPO since Midnight. 9:02:05 Is the patient allergic to Iodine/contrast media? No. 9:02:07 Is patient on blood thinner?Yes 9:02:09 ACC The patient was administered the following blood thiners within the last 24 hours: ACCPlavix 9:02:11 Patient diabetic? Yes. 9:02:12 If diabetic: On Metformin? No 9:02:13 ----Pre-sedation anethsthesia assessment.---- 9:02:16 Previous problem with sedation/anesthesia? No ? 9:02:21 Snore? No 9:02:23 Sleep apnea? No 9:02:24 Deviated septum? No 9:02:26 Opens mouth fully? Yes 9:02:28 Sticks out tongue? Yes 9:02:32 Airway obstruction? Yes COPD 9:02:38 Dentures? Yes IN TIGHT 9:02:45 Pre procedure: right dorsailis pedis pulse 2+ Normal; easily identifiable; not easily obliterated 9:02:49 Patient pain scale 0/10 ?. 9:02:54 IV patent on arrival in right antecubital with 0.9% NaCl at 10ml/hr. 9:02:57 Lab results completed and on chart. 9:03:00 Right groin area was prepped with chlora-prep and draped in sterile fashion 9:03:01 Sharps counted by scrub and verified by R.N. 9:03:01 Alarms reviewed by R. N. 9:05:57 Oxygen 2 l/min etCO2 Nasal cannula was administered by Мария Simmons RN; used for procedure; 9:06:04 Lidocaine 2% 20ml vial added to field was administered by Shashank Delaney MD; for local anesthetic; 9:06:10 Heparin Flush Bag (1000units/500ml NS) 2 bags added to field was administered by Shashank Delaney MD; used for procedure; 9:06:19 0.9% NaCl 100 ml/hr I.V. was administered by Мария Simmons RN; Per physician; 9:11:14 Physician arrived 9:11:15 Final Timeout: patient, procedure, and site verified with staff and physician. All members of the team are in agreement. 9:11:15 --------ALL STOP TIME OUT------ 9:11:17 Right groin site verified by team. 9:11:22 Physical assessment completed. ASA score P 2 - A patient with mild systemic disease as per Shashank Delaney MD. 9:11:26 Sedation plan: IV Moderate Sedation Medication:Versed, Fentanyl 9:11:42 Versed 1 mg I.V. was administered by Мария Simmons RN; for sedation; 9:11:47 INFLATOR Merit BasixCompak (QB4101) opened to sterile field. 9:11:48 Fentanyl 50 mcg I.V. was administered by Мария Simmons RN; for sedation; 9:11:56 CHOICE PT Extra Support 182cm wire ([id number]) opened to sterile field. 9:11:58 GUIDE 6FR XBLAD 3.5 catheter ([id number]) opened to sterile field. 9:12:20 Zero performed for pressure channel P1 9:12:29 EXOSEAL 6Fr (EX600) opened to sterile field. 9:12:30 SHEATH Prelude 6Fr 0.035 (UES-0X-45-035) opened to sterile field. 9:12:45 ACIST Syringe (08555) opened to sterile field. 9:12:46 Medline Cath Pack ([id number]) opened to sterile field. 9:12:46 Bag Decanter () opened to sterile field. 9:12:47 DIAGNOSTIC WIRE .035 260cm J wire (461236) opened to sterile field. 9:12:49 ACIST Manifold (14620) opened to sterile field. 9:12:49 ACIST Hand Control (71476) opened to sterile field. 9:12:52 Tegaderm 4 x 4 (1626W) opened to sterile field. 9:13:28 Procedure started. 9:13:30 Heparin Bolus 4000 units I.V. was administered by Buffie Simmons RN; for anticoagulation; verified with dr delaney 9:13:43 Local anesthetic to right femoral artery with Lidocaine 2% by Shashank Delaney MD.INITIAL ACCESS ONLY 9:13:53 A 6 Fr Short sheath was inserted into the Right Femoral artery 9:14:04 6 Fr XBLAD 3.5 guide catheter was inserted over the wire 9:14:09 CPTES wire advanced. 9:14:57 Place stent Inflation Number: 1 A DEYANIRA RX 2.5 x 15 stent ([id number]) was prepped and advanced across the Prox LAD. The stent was deployed at 13 KERRY for 0:10 (min:sec). 9:15:01 Stent catheter was removed intact over wire. 9:15:02 Wire removed. 9:15:05 Guide catheter removed. 9:15:14 Sheath removed intact; hemostasis achieved with Exoseal to the Right Femoral artery. 9:15:16 Procedure ended.(Physican Out) 9:15:23 Fentanyl 50 mcg I.V. was administered by Мария Simmons RN; for sedation; 9:15:26 Fluoroscopy time 01.00 minutes. 9:15:53 Fluoroscopy dose: 57.58 mGy 9:15:53 Flurop Dose total: 57.58 9:15:57 Contrast amount:Isovue 300 29ml. 9:15:59 Sharps counted by scrub and verified by R.N. 9:16:00 Insertion/operative site no bleeding no hematoma. 9:16:02 Post-op/insertion site Right Femoral artery dressed using a 4 x 4 and Tegaderm. 9:16:05 Post right femoral artery:stable 9:16:07 Post Procedure Pulses reassessed and unchanged 9:16:09 Post procedure: right dorsailis pedis pulse 1+ Palpable, but thready & weak; easily obliterated. 9:16:12 Post procedure rhythm: sinus rhythm 9:16:13 Post procedure instruction explained to patient.Patient verbalizes understanding. 9:16:15 Procedure and supply charges have been captured, reviewed, submitted and are correct. 9:20:12 Procedure Complication : No complications 9:22:33 See physician's report for complete and final results. 9:22:33 Vital chart was stopped 9:22:36 Report given to Pre/Post Procedure Room. 9:22:39 Patient transfered to Pre/Post Procedure Room with Stretcher. 9:22:41 Full Disclosure recording stopped 9:22:41 Procedure ended. 9:22:46 End room use (Document Last) Intervention Summary Intervention Notes Time ActionType Lesion and Equipment Used Action# Pressure Duration Attributes 9:14:57 Place stent Prox LAD DEYANIRA RX 2.5 x 1 13 00:10 15 stent ([id number]) Device Usage Item Name Manufacture Quantity Catalog Number Hospital Part Current Minimal Lot# / Charge Number Stock Stock Serial# Code INFLATOR Merit Merit 1 [id number] 120361 [id number] 15 Reppify ([id number]) CHOICE PT Extra Bruce 1 [id number] 206738 188797 503959 5 Support 182cm Scientific wire ([id number]) GUIDE 6FR XBLAD Cardinal 1 [id number] 955927 576152 561342 10 3.5 catheter Health ([id number]) EXOSEAL 6Fr Cardinal 1 EX600 736457 441078 607621 10 (EX600) Health SHEATH Prelude Merit 1 [id number] 2992064 908405 5 6Fr 0.035 Medical (ARG-2V-38-035) ACIST Syringe Acist 1 29381 606082 906532 509228 20 (50944) Medical Systems Inc Bag Decanter Microtek 1 2001S 081144 18319 944829 5 (2001S) Medical Inc. Medline Cath Cardinal 1 [id number] 506478 67474 405051 5 Pack Health ([id number]) DIAGNOSTIC WIRE St Patrice 1 047934 439687 800069 808969 30 .035 260cm J wire (063341) ACIST Hand Acist 1 12977 868378 085827 766112 5 Control (67867) Medical Systems Inc ACIST Manifold Acist 1 55824 480450 131630 572382 5 (66810) Medical Systems Inc Tegaderm 4 x 4 3M 1 1626W 699041 658025 191792 5 (1626W) DEYANIRA RX 2.5 x Medtronic 1 [id number] 446486 8465607 868125 5 [id number] 15 stent ([id number]) Signature Audit Spelter Stage Time Signature Unsigned Intra-Procedure 03/30/2018 Lexx Dominique RT(R) 9:24:32 AM Signatures Monitor : Lexx Dominique RT Signature : Date : Time : [facility] [address] [place] [address]
[2018-03-30 08:15] VITALS: BP 140/48; Ht 162.6 cm; Wt 50.0 kg
[2018-03-30 08:23] LABS: BASOPHILS 0.4 % (0-2); EOSINOPHILS 1.9 % (0-7); HEMATOCRIT 34.3 % (36.0-48.0); HEMOGLOBIN 11.4 g/dL (12-16); IMMATURE GRANULOCYTES 0.3 % (0-5); LYMPHOCYTES 22.3 % (15-50); MCH 32.4 pg (26.0-34.0); MCHC 33.2 g/dL (31.0-37.0); MCV 97.4 fL (80.0-100.0); MONOCYTES 7.6 % (2-11); NEUTROPHILS 67.5 % (40-80); PLATELET COUNT 341 10x3/uL (130-400); RBC 3.52 10x6/uL (4.00-5.40); RDW 13.6 % (11.5-14.5); WBC 7.8 10x3/uL (4.8-10.8)
[2018-03-30 08:36] LABS: CALC OSMOLALITY 274 mosm/kg (275-300); CARBON DIOXIDE 26.2 mmol/L (21.0-32.0); CHLORIDE - SERUM 104 mmol/L (98-107); CREATININE - SERUM 0.7 mg/dL (0.6-1.3); POTASSIUM - SERUM 3.7 mmol/L (3.5-5.1); SODIUM 138 mmol/L (136-145); UREA NITROGEN 9 mg/dL (7-18); eGFR NON AFRICAN AMERICAN 87 mL/min (90-120)
[2018-03-30 08:38] LABS: GLUCOSE 97 mg/dL (74-106)
== END 2018-03-30 13:30 | disposition home or self-care (01) ==
LOC: D.CATH 07:48
PROVIDERS: Internal Medicine Interventional Cardiology
DX: I25.110 Atherosclerotic heart disease of native coronary artery with unstable angina pectoris (principal)

== ENCOUNTER → 2018-05-21 11:26 | Outpatient (CLI) | payer MEDICARE, OTHER ==
[2018-03-30 08:15] VITALS: BMI 18.9
== END | disposition home or self-care (01) ==
LOC: D.US 11:26
DX: M79.604 Pain in right leg (principal); I73.9 Peripheral vascular disease, unspecified; R60.0 Localized edema

== ENCOUNTER 2018-05-22 08:42 | Outpatient (CLI) | payer MEDICARE, OTHER ==
[~2018-05-22] VITALS: Ht 162.6 cm; Wt 50.0 kg
--- NOTE | ~2018-05-22 | HEMODYNAMI ---
PATIENT:VERNON BOLTON MEDICAL RECORD: [id number] : 43 LOCATION:D.CAT ADMISSION DATE: 05/22/18 Generatedon:05/22/201813:02 Patient name: VERNON BOLTON Patient #: [id number] SSN: : Date of study: 05/22/2018 Page: Of Hemodynamic Procedure Report Patient Data Patient Demographics Procedure consent was obtained First Name: VERNON Gender: Female Last Name: HOANG : 1945 [facility] Initial: JAY Age: 73 year(s) Patient #: [id number] Race: Additional ID: [id number] Contact details Address: [address] [place] [address] [facility] State: [place] City: [place] Zip code: [address] Past Medical History Allergies Allergen Reaction Date Comments Reported Other allergy 03/21/2017 DEMEROL, IBUPROFEN, SULFA Other allergy 03/30/2018 DEMEROL, IBUPROFEN, SULFA, VERSED Admission Admission Data Admission Date: 05/22/2018 Admission Time: 8:42 Procedure Procedure Types Cath Procedure Diagnostic Procedure LHC LHC w/Coronaries PCI Procedure PTCA PTCA Initial Peripheral Cath Diagnostic Procedure Sous Chef Peripheral Procedures Ktmou-Rlqstmu-Kqs-Off Peripheral vascular Intervention Angioplasty Angioplasty Tib-Per Initial Stent Stent-Fem/Popw/plasty Procedure Description Procedure Date Procedure Date: 05/22/2018 Procedure Start Time: 12:13 Procedure End Time: 12:58 Procedure Staff Name Function Shashank Delaney MD Performing Physician Laura Pulido RT Monitor Anca Lobo RN Nurse Inder Carlos RT Scrub Procedure Data Cath Procedure Fluoroscopy Diagnostic fluoroscopy Total fluoroscopy Time: 11 time: 11 min min Diagnostic fluoroscopy Total fluoroscopy dose: 448 dose: 448 mGy mGy Contrast Material Contrast Material Type Amount (ml) Isovue 300 191 Entry Location Entry Primary Successful Side Size Upsize Upsize Entry Closure Succes sful Closure Location (Fr) 1 (Fr) 2 (Fr) Remarks Device Remarks Femoral Left 5 Fr 6 Fr 6 Fr Exoseal artery Short Long Estimated blood loss: 10 ml Diagnostic catheters Device Type Used For End Catheter Placement MULTIPACK Pigtail 5 Fr LV Angiography catheter MULTIPACK Pigtail 5 Fr Abdominal catheter aortogram with runoff MULTIPACK JL 4.0 5Fr Left Coronary catheter Angiography MULTIPACK 3DRC 5Fr Right Coronary catheter Angiography DIAGNOSTIC UF 5Fr Procedure catheter ([id number]) DIAGNOSTIC Aqua Straight Procedure 125cm 5Fr catheter ([id number]) Procedure Complications No complications Procedure Medications Medication Administration Route Dosage 0.9% NaCl I.V. 100 ml/hr Oxygen etCO2 Nasal cannula 2 l/min Lidocaine 2% added to field 20 Heparin Flush Bag added to field 2 bags (1000units/500ml NS) Versed I.V. 2 mg Fentanyl I.V. 100 mcg Versed I.V. 1 mg Heparin Bolus I.V. 4000 units Versed I.V. 1 mg Fentanyl I.V. 50 mcg Fentanyl I.V. 50 mcg Versed I.V. 1 mg Nitroglycerin IC/IA I.A. 450 mcg Nitroglycerin IC/IA I.C. 450 mcg Hemodynamics Rest Heart Rate: 75 (bpm) Snapshots Pre Cath Intra NCS Post Cath Vital Signs Time Heart Resp SPO2 NIBP (mmHg) Rhythm Pain Sedation Rate (ipm) (%) Status Level (bpm) 11:47:49 105 16 98 140/84(110) ST 0 (11) 10(A) , No pain 11:51:59 86 18 97 136/78(104) NSR 0 (11) 10(A) , No pain 11:56:09 83 16 98 133/71(98) NSR 0 (11) 10(A) , No pain 12:00:17 86 11 100 135/71(92) NSR 0 (11) 10(A) , No pain 12:04:31 79 16 100 115/59(83) NSR 0 (11) 10(A) , No pain 12:08:34 80 15 98 108/69(90) NSR 0 (11) 10(A) , No pain 12:12:34 87 13 98 119/71(93) NSR 0 (11) 10(A) , No pain 12:16:42 84 13 97 109/58(82) NSR 0 (11) 10(A) , No pain 12:20:46 84 16 98 111/59(91) NSR 0 (11) 10(A) , No pain 12:24:49 84 14 97 112/62(89) NSR 0 (11) 10(A) , No pain 12:28:51 92 16 99 122/68(98) NSR 0 (11) 10(A) , No pain 12:32:59 87 15 99 111/63(86) NSR 0 (11) 10(A) , No pain 12:37:01 86 15 98 120/65(85) NSR 0 (11) 10(A) , No pain 12:41:06 82 12 100 112/64(92) NSR 0 (11) 10(A) , No pain 12:45:10 84 13 100 114/63(90) NSR 0 (11) 10(A) , No pain 12:49:16 87 14 98 109/60(80) NSR 0 (11) 10(A) , No pain 12:53:19 94 14 98 110/63(86) NSR 0 (11) 10(A) , No pain 12:57:21 92 14 96 109/64(83) NSR 0 (11) 10(A) , No pain Medications Time Medication Route Dose Verified Delivered Reason Notes Effectiveness by by 11:58:44 0.9% NaCl I.V. 100 Shashank Anca used for ml/hr Elaina Lobo pt skilled 11:58:51 Oxygen etCO2 2 Shashank Anca used for Nasal l/min Elaina Lobo procedure cannula RN 11:58:57 Lidocaine 2% added 20ml Shashank Shashank for local to vial Elaina Delaney MD anesthetic field 11:59:01 Heparin Flush added 2 Shashank Shashank used for Bag to bags Elaina Delaney MD procedure (1000units/500ml field NS) 12:10:43 Fentanyl I.V. 100 Shashank Anca mcg Elaina Lobo RN 12:10:44 Versed I.V. 2 mg Shashank Anca for sedation Elaina Lobo RN 12:22:20 Versed I.V. 1 mg Shashank Anca for sedation Elaina Lobo RN 12:22:30 Heparin Bolus I.V. 4000 Shashank Anca for verif ied units Elaina Lobo anticoagulation with Dr. GABBY Delaney 12:31:19 Versed I.V. 1 mg Shashank March for sedation Elaina Lobo RN 12:31:24 Fentanyl I.V. 50 Shashank Morenoa for sedation mcg Elaina Lobo RN 12:37:16 Fentanyl I.V. 50 Shashank Farnsworthyla for sedation mcg Elaina Lobo RN 12:41:08 Versed I.V. 1 mg Shashank March for sedation Elaina Lobo RN 12:48:32 Nitroglycerin I.A. 450 Shashank Encarnacion for IC/IA mcg Elaina Delaney MD vasodilation 12:49:34 Nitroglycerin I.C. 450 Shashank Encarnacion for IC/IA mcg Elaina Delaney MD vasodilation Procedure Log Time Note 10:51:45 Time tracking: Regular hours (M-F 7:00 - 5:00) 10:51:49 Plan of Care:Hemodynamics will remain stable., Cardiac rhythm will remain stable., Comfort level will be maintained., Respiratory function will remain adequate., Patient/ family verbilizes understanding of procedure., Procedure tolerated without complication., Recovers from procedure without complications.. 11:22:28 Anca Lobo RN sent for patient. Start room use. 11:38:31 Patient received from Pre/Post Procedure Room to CCL 1 Alert and oriented. Tansferred to table in Supine position. 11:38:32 Warm blankets applied, and anoop hugger turned on for patient comfort. 11:38:32 Correct patient and procedure confirmed by team. 11:38:33 Signed procedure consent form obtained from patient. 11:38:35 ECG and BP/O2 sat monitors applied to patient. 11:38:36 Pre-procedure instructions explained to patient. 11:38:36 Pre-op teaching completed and patient verbalized understanding. 11:38:37 Family in waiting room. 11:38:38 Patient NPO since Midnight. 11:46:40 Vital chart was started 11:48:30 Full Disclosure recording started 11:52:20 Baseline sample Acquired. 11:52:25 Rhythm: sinus rhythm 11:55:46 Is the patient allergic to Iodine/contrast media? No. 11:56:10 Is patient on blood thinner?Yes 11:56:14 ACC The patient was administered the following blood thiners within the last 24 hours: ACCPlavix 11:56:19 Patient diabetic? Yes. 11:58:44 0.9% NaCl 100 ml/hr I.V. was administered by Anca Lobo RN; used for procedure; 11:58:51 Oxygen 2 l/min etCO2 Nasal cannula was administered by Anca Lobo RN; used for procedure; 11:58:57 Lidocaine 2% 20ml vial added to field was administered by Shashank Delaney MD; for local anesthetic; 11:59:01 Heparin Flush Bag (1000units/500ml NS) 2 bags added to field was administered by Shashank Delaney MD; used for procedure; 11:59:29 etCO2 monitor malfunction, NATE etCO2 at this time 12:01:08 Previous problem with sedation/anesthesia? No ? 12:01:14 Snore? Yes 12:01:15 Sleep apnea? No 12:01:16 Deviated septum? No 12:01:17 Opens mouth fully? Yes 12:01:18 Sticks out tongue? Yes 12:01:24 Airway obstruction? Yes COPD 12:01:27 Dentures? Yes IN 12:01:35 Pre procedure: right dorsailis pedis pulse 1+ Palpable, but thready & weak; easily obliterated 12:01:39 Pre procedure: left dorsailis pedis pulse 1+ Palpable, but thready & weak; easily obliterated 12:01:57 If diabetic: On Metformin? No 12:02:05 Patient pain scale 0/10 ?. 12:02:11 IV patent on arrival in left forearm with 0.9% NaCl at [facility]. 12:02:14 Lab results completed and on chart. 12:02:17 Bilateral groins area was prepped with chlora-prep and draped in sterile fashion 12:02:18 Alarms reviewed by R. N. 12:02:18 Sharps counted by scrub and verified by R.N. 12:02:52 ACIST Syringe (83894) opened to sterile field. 12:02:54 Bag Decanter (2002S) opened to sterile field. 12:02:55 Medline Cath Pack ([id number]) opened to sterile field. 12:02:56 ACIST Hand Control (39488) opened to sterile field. 12:02:57 ACIST Manifold (22798) opened to sterile field. 12:02:58 Tegaderm 4 x 4 (1626W) opened to sterile field. 12:02:59 SHEATH 5FR [place] (ETU864) opened to sterile field. 12:03:22 Physician paged 12:07:44 Use device set Multipack Set 12:07:49 DIAGNOSTIC Multipack 5Fr catheter set (NA8714) opened to sterile field. 12:10:05 Final Timeout: patient, procedure, and site verified with staff and physician. All members of the team are in agreement. 12:10:07 Right groin site verified by team. 12:10:16 Physical assessment completed. ASA score P 2 - A patient with mild systemic disease as per Shashank Delaney MD. 12:10:21 Sedation plan: IV Moderate Sedation Medication:Versed, Fentanyl 12::43 Fentanyl 100 mcg I.V. was administered by Anca Lobo RN; ; 12::44 Versed 2 mg I.V. was administered by Anca Lobo RN; for sedation; 12:13:38 Procedure started. 12:13:43 Local anesthetic to left femerol artery with Lidocaine 2% by Shashank Delaney MD.INITIAL ACCESS ONLY 12:14:30 A 5 Fr sheath was inserted into the Left Femoral artery 12:15:05 A MULTIPACK Pigtail 5 Fr catheter was advanced over the wire and used for LV Angiography. 12:15:09 EF : 40 % 12:15:12 Injector settings: Ml/sec: 10, Volume: 20, 12:15:17 Catheter removed. 12:15:32 A MULTIPACK Pigtail 5 Fr catheter was advanced over the wire and used for Abdominal aortogram with runoff. 12:16:38 Catheter removed. 12:16:51 A MULTIPACK JL 4.0 5Fr catheter was advanced over the wire and used for Left Coronary Angiography. 12:18:16 Catheter removed. 12:18:40 A MULTIPACK 3DRC 5Fr catheter was advanced over the wire and used for Right Coronary Angiography. 12:20:45 Catheter removed. 12:20:55 SHEATH 6FR Destination (RSR01) opened to sterile field. 12:21:04 Use device set TAUTH PCI 12:21:06 INFLATOR Merit BasixCompak (SH8186) opened to sterile field. 12:21:10 CHOICE PT Extra Support 182cm wire ([id number]) opened to sterile field. 12:21:58 SHEATH 6FR [place] (UHU545) opened to sterile field. 12:22:05 Sheath upsized to a 6 Fr Short. 12:22:20 Versed 1 mg I.V. was administered by Anca Lobo RN; for sedation; 12:22:30 Heparin Bolus 4000 units I.V. was administered by Anca Lobo RN; for anticoagulation; verified with Dr. Delaney 12:23:29 6 Fr AR 1.0 guide catheter was inserted over the wire 12:23:36 Guide Catheter removed. unable to cannulate vessel. 12:24:11 GUIDE 6FR 3DRC catheter ([id number]) opened to sterile field. 12:24:50 CHOICE PT ES wire advanced. 12:27:00 Inflate balloon Inflation number: 1 A EUPHORA 4.0 x 20 Balloon ([id number]) was prepped and advanced across the Mid RCA, then inflated to 13 KERRY for 0:13 (min:sec). 12::22 Inflation number: 2 The EUPHORA 4.0 x 20 Balloon ([id number]) was reinflated across the Mid RCA, to 17 KERRY for 0:10 (min:sec). 12:27:23 Balloon removed over the wire. 12:27:53 Wire removed. 12:27:54 Guide catheter removed. 12:29:16 A DIAGNOSTIC UF 5Fr catheter ([id number]) was advanced over the wire and used for Procedure. 12:29:24 SS GLIDE wire advanced. 12:29:55 Sheath upsized to a 6 Fr Long. 12:31:19 Versed 1 mg I.V. was administered by Anca Lobo RN; for sedation; 12:31:24 Fentanyl 50 mcg I.V. was administered by Anca Lobo RN; for sedation; 12:31:45 GLIDE WIRE REMOVED 12:33:18 CHOICE PT Extra Support J 300cm guide wire ([id number]) opened to sterile field. 12:33:25 A DIAGNOSTIC Aqua Straight 125cm 5Fr catheter ([id number]) was advanced over the wire and used for Procedure. 12:34:43 CHOICE PT ES 300CM wire advanced. 12:35:17 Catheter exchanged over wire. 12:35:40 Procedure type changed to Cath procedure, Diagnostic procedure, LHC, LHC w/Coronaries, PCI procedure, PTCA, PTCA Initial, Peripheral Cath Diagnostic Procedure, Sous Chef Peripheral Procedures, Bmhin-Rrqarwo-Udu-Off, Peripheral vascular Intervention, Angioplasty, Angioplasty Tib-Per Initial, Stent, Stent-Fem/Popw/plasty 12:37:01 Inflation number: 1 The EUPHORA 4.0 x 20 Balloon ([id number]) was reinflated across the Distal Popliteal, Right, to 5 KERRY for 0:14 (min:sec). 12:37:12 Inflation number: 2 The EUPHORA 4.0 x 20 Balloon ([id number]) was reinflated across the Distal Popliteal, Right, to 5 KERRY for 0:08 (min:sec). 12:37:16 Fentanyl 50 mcg I.V. was administered by Anca Lobo RN; for sedation; 12:37:21 Inflation number: 3 The EUPHORA 4.0 x 20 Balloon ([id number]) was reinflated across the Distal Popliteal, Right, to 3 KERRY for 0:05 (min:sec). 12:38:19 Balloon removed over the wire. 12:41:08 Versed 1 mg I.V. was administered by Anca Lobo RN; for sedation; 12:43:03 SMART Flex 5 X 30 X 120 stent ([id number]) was deployed across Distal Popliteal, Right . 12:43:07 Stent catheter was removed intact over wire. 12:45:54 Inflate balloon Inflation number: 1 A SABER 3.0 X 100 X 150 balloon ([id number]) was prepped and advanced across the Mid Anterior Tibial, Right, then inflated to 7 KERRY for 0:06 (min:sec). 12:46:20 Inflation number: 2 The SABER 3.0 X 100 X 150 balloon ([id number]) was reinflated across the Mid Anterior Tibial, Right, to 7 KERRY for 0:11 (min:sec). 12:46:48 Balloon removed over the wire. 12:48:32 Nitroglycerin IC/IA 450 mcg I.A. was administered by Shashank Delaney MD; for vasodilation; 12:49:34 Nitroglycerin IC/IA 450 mcg I.C. was administered by Shashank Delaney MD; for vasodilation; 12:50:36 Wire removed. 12:51:20 SHEATH EXCHANGED FOR 6FR SHORT IN LFA 12:51:27 Sheath removed intact; hemostasis achieved with Exoseal to the Left Femoral artery. 12:51:30 Procedure ended.(Physican Out) 12:51:57 Fluoroscopy time 11.00 minutes. 12:52:00 Flurop Dose total: 448 12:52:00 Fluoroscopy dose: 448 mGy 12:52:09 Contrast amount:Isovue 300 191ml. 12:52:10 Sharps counted by scrub and verified by R.N. 12:52:12 Insertion/operative site no bleeding no hematoma. 12:52:15 Post-op/insertion site Left Femoral artery dressed using a 4 x 4 and Tegaderm. 12:52:30 Post left femerol artery:stable, clean and dry 12:52:31 Post Procedure Pulses reassessed and unchanged 12:52:33 Post-procedure physical assessment completed. ASA score P 2 - A patient with mild systemic disease as per Shashank Delaney MD. 12:52:35 Post procedure rhythm: unchanged. 12:52:37 Estimated blood loss: 10 ml 12:52:39 Post procedure instruction explained to patient.Patient verbalizes understanding. 12:52:39 Patient needs reinforcement of post procedure teaching. 12:52:44 Procedure Complication : No complications 12:52:55 See physician's report for complete and final results. 12:53:47 EXOSEAL 6Fr (EX600) opened to sterile field. 12:58:01 GUIDE 6FR AR 1.0 catheter (WC0NN24) opened to sterile field. 12:58:41 Procedure and supply charges have been captured, reviewed, submitted and are correct. 12:58:41 Vital chart was stopped 12:58:43 Report given to Pre/Post Procedure Room. 12:58:45 Patient transfered to Pre/Post Procedure Room with Stretcher. 12:58:47 Procedure ended. 12:58:47 Full Disclosure recording stopped 12:59:45 TORQUE DEVICE PLASTIC .038 ( TD01) opened to sterile field. 12:59:53 End room use (Document Last) Intervention Summary Intervention Notes Time ActionType Lesion and Equipment Action# Pressure Duration Attributes Used 12:27:00 Inflate Mid RCA EUPHORA 4.0 1 13 00:13 balloon x 20 Balloon ([id number]) 12:27:22 Reinflate Mid RCA EUPHORA 4.0 2 17 00:10 balloon x 20 Balloon ([id number]) 12:37:01 Reinflate Distal EUPHORA 4.0 1 5 00:14 balloon Popliteal, x 20 Right Balloon ([id number]) 12:37:12 Reinflate Distal EUPHORA 4.0 2 5 00:08 balloon Popliteal, x 20 Right Balloon ([id number]) 12:37:21 Reinflate Distal EUPHORA 4.0 3 3 00:05 balloon Popliteal, x 20 Right Balloon ([id number]) 12:43:03 Deploy self Distal SMART Flex 1 expanding Popliteal, 5 X 30 X stent Right 120 stent ([id number]) 12:45:54 Inflate Mid SABER 3.0 X 1 7 00:06 balloon Anterior 100 X 150 Tibial, balloon Right ([id number]) 12:46:20 Reinflate Mid SABER 3.0 X 2 7 00:11 balloon Anterior 100 X 150 Tibial, balloon Right ([id number]) Device Usage Item Name Manufacture Quantity Catalog Number Hospital Part Current Minim al Lot# / Charge Number Stock Stock Serial# Code ACIST Acist 1 10708 464759 090320 543420 20 Syringe Medical (93235) Systems Inc Bag Microtek 1 2001S 580036 72469 224039 5 Decanter Medical Inc. () Medline Medline 1 [id number] 346281 92739 601108 5 Cath Pack ([id number]) ACIST Hand Acist 1 10054 149484 832707 005995 5 Control Medical (84302) Systems Inc ACIST Acist 1 80777 335841 050266 520275 5 Manifold Medical (35372) Systems Inc Tegaderm 4 3M 1 1626W 818459 260051 869491 5 x 4 (1626W) SHEATH 5FR Terumo 1 KLW467 151183 415194 886381 40 [place] (JIS515) DIAGNOSTIC Cardinal 1 ZD5149 661141 20375 213227 30 Multipack Health 5Fr catheter set (FG1677) MULTIPACK Cardinal 1 829371 5 Pigtail 5 Health Fr catheter MULTIPACK Cardinal 1 063442 5 JL 4.0 5Fr Health catheter MULTIPACK Cardinal 1 325545 5 3DRC 5Fr Health catheter SHEATH 6FR Terumo 1 RSR01 813985 71081 074522 5 Destination (RSR01) INFLATOR Merit 1 AE9433 107925 930822 793385 15 [facility] Medical BasixCompak (MT2804) CHOICE PT [place] 1 [id number] 316991 931379 666716 5 Extra Scientific Support 182cm wire (0495327V5) SHEATH 6FR Terumo 1 ELH045 530818 533579 112156 40 [place] (FKF803) GUIDE 6FR Medtronic 1 MO56ACP 984796 575949 451245 1 3DRC catheter (QZ35JXU) EUPHORA 4.0 Medtronic 1 [id number] 490817 795204 163780 5 [id number] x 20 Balloon ([id number]) DIAGNOSTIC Cardinal 1 031948M0 020624 023196 581676 10 UF 5Fr Health catheter (094561E5) CHOICE PT [place] 1 [id number] 810823 483300 382901 5 Extra Scientific Support J 300cm guide wire ([id number]) DIAGNOSTIC Cardinal 1 KFC9618 261516 905260 938129 5 [employer] Straight 125cm 5Fr catheter (WNC9227) SMART Flex Cardinal 1 [id number] 221609 304310 0 34492 5 X 30 X Health 120 stent ([id number]) SABER 3.0 X Cardinal 1 [id number] 416950 525304 5 100 X 150 Health balloon ([id number]) EXOSEAL 6Fr Cardinal 1 EX600 300591 516295 367939 10 (EX600) Health GUIDE 6FR Medtronic 1 [id number] 035834 03765 947456 1 AR 1.0 catheter (OM2YL38) TORQUE [place] 1 TD01 509133 184419 594257 5 DEVICE Scientific PLASTIC .038 ( TD01) Signature Audit [place] Stage Time Signature Unsigned Intra-Procedure 05/22/2018 Laura 1:02:49 PM Counts RT(R) Signatures Monitor : Laura Signature : Counts RT Date : Time : [facility] [address] [facility] [address]
--- NOTE | ~2018-05-22 | OP ---
PATIENT NAME: VERNON BOLTON MEDICAL RECORD: [id number] :43 LOCATION:D.CAT ADMISSION DATE: SURGEON: SOPHIA JONES MD DATE OF OPERATION: 05/22/2018 PROCEDURES: 1. Stent placement, popliteal right. 2. CONFERENCE MANAGER, popliteal right. 3. CONFERENCE MANAGER, posterior tibial, right. 4. Aortofemoral runoff. 5. Abdominal aortography. INDICATION: Claudication, peripheral vascular disease, limb-threatening ischemia. PROCEDURE IN DETAIL: After informed consent was obtained with detailed description of risks and benefits as well as alternative therapies, the patient elected to proceed with angiogram and angioplasty. FINDINGS: Abdominal aortography was performed. The catheter was pulled down for aortofemoral runoff. Abdominal aortography reveals no significant abdominal aortic disease. No dissection or aneurysm formation. RIGHT LEG: A. Iliac: The common internal and external iliacs have moderate irregularities, but no flow-limiting stenosis. B. Femoral system: The common superficial and deep femoral have moderate irregularities, but no flow-limiting stenosis. C. Popliteal and infrapopliteal vessels: These are totally occluded. There is abrupt total occlusion of the distal popliteal as if these were embolic. LEFT LEG: A. Iliac: The common internal and external iliacs have mild irregularities, but no flow-limiting stenosis. B. Femoral system: The common superficial and deep femoral have moderate irregularities, but no flow-limiting stenosis. C. Popliteal and infrapopliteal vessels: These are widely patent with good 3-vessel runoff to the foot. CONFERENCE MANAGER AND STENT OF THE POPLITEAL RIGHT: We were able to traverse this total occlusion with Aqua cath and Choice PT extra support wire. We ballooned this with a 4.0 balloon and stented with a 5.0 nitinol SMART stent. There was still very poor flow through the distal vessels. We ballooned the posterior tibial with a 3.0 balloon. Result was 0% residual stenosis with evangelical of brisk distal flow. OVERALL IMPRESSION: Successful CONFERENCE MANAGER and stent of the popliteal on the right going from 100% acute occlusion to 0% residual stenosis with evangelical of brisk distal flow. TRANSINT:[id number] Voice Confirmation ID: [id number] DOCUMENT ID: [id number] OPERATIVE REPORT [id number] VERNON BOLTON SOPHIA JONES MD at 1856 CC: [id number] DICTATION DATE: 05/22/18 1303 MAINTENANCE AIDE: 05/22/18 1357 DEP CLI 05/22/18 [facility] [address] [place] [address]
--- NOTE | ~2018-05-22 | OP ---
PATIENT NAME: VERNON BOLTON MEDICAL RECORD: [id number] :43 LOCATION:D.CAT ADMISSION DATE: SURGEON: SOPHIA JONES MD DATE OF OPERATION: 05/22/2018 PROCEDURES: 1. PTCA and stent, RCA. 2. Left heart catheterization. 3. Selective coronary angiography. 4. Left ventriculogram. INDICATION: Angina and coronary disease. PROCEDURE IN DETAIL: After informed consent was obtained with detailed description of risks and benefits as well as alternative therapies, the patient elected to proceed with angiogram and angioplasty. The right femoral area was prepped and draped in normal sterile fashion. Right femoral artery was cannulated via modified Seldinger technique with placement of 6-Serbian sheath. All catheters were exchanged through this sheath. FINDINGS: 1. The left main is with no significant angiographic disease. 2. The left anterior descending has multiple previously placed stents. These are widely patent with no significant restenosis. No disease else garcia of the LAD or its branches. 3. The left circumflex has moderate irregularities, but no flow-limiting stenosis. 4. The right coronary has previously placed stents. There is up to 75% in-stent restenosis in the mid vessel. PTCA OF THE RIGHT CORONARY: This balloon used was 4.0 balloon, taken to 17 atmospheres. Result was 0% residual stenosis. OVERALL IMPRESSION: Successful PTCA of the RCA for in-stent restenosis, going from 75% initial stenosis to 0% residual. TRANSINT:[id number] Voice Confirmation ID: [id number] DOCUMENT ID: [id number] SOPHIA JONES MD at 1856 CC: [id number] DICTATION DATE: 05/22/18 1301 BODY SANDER: 05/22/18 1346 DEP CLI 05/22/18 [place] [id number] [place] [id number]
[2018-05-22 09:24] VITALS: BP 99/48; Ht 162.6 cm; Wt 50.0 kg
[2018-05-22 09:32] LABS: BASOPHILS 0.3 % (0-2); HEMATOCRIT 35.3 % (36.0-48.0); HEMOGLOBIN 12.1 g/dL (12-16); IMMATURE GRANULOCYTES 0.3 % (0-5); LYMPHOCYTES 17.9 % (15-50); MCH 32.3 pg (26.0-34.0); MCHC 34.3 g/dL (31.0-37.0); MCV 94.1 fL (80.0-100.0); MEAN PLATELET VOLUME 9.9 fL (7.4-10.4); MONOCYTES 6.8 % (2-11); NEUTROPHILS 73.7 % (40-80); PLATELET COUNT 390 10x3/uL (130-400); RBC 3.75 10x6/uL (4.00-5.40); RDW 13.9 % (11.5-14.5); WBC 10.8 10x3/uL (4.8-10.8)
[2018-05-22 09:48] LABS: ANION GAP 10.9 mmol/L (8-16); CALCIUM 8.9 mg/dL (8.5-10.1); CARBON DIOXIDE 28.2 mmol/L (21.0-32.0); CREATININE - SERUM 0.9 mg/dL (0.6-1.3); POTASSIUM - SERUM 4.1 mmol/L (3.5-5.1)
== END 2018-05-22 16:40 | disposition home or self-care (01) ==
LOC: D.CATH 08:42
PROVIDERS: Internal Medicine Interventional Cardiology
DX: I25.119 Atherosclerotic heart disease of native coronary artery with unspecified angina pectoris (principal); T82.855A Stenosis of coronary artery stent, initial encounter; I70.211 Atherosclerosis of native arteries of extremities with intermittent claudication, right leg; I70.92 Chronic total occlusion of artery of the extremities; Z01.812 Encounter for preprocedural laboratory examination

== ENCOUNTER → 2018-06-15 08:42 | Outpatient (CLI) | payer MEDICARE, OTHER ==
[2018-05-22 09:24] VITALS: BMI 18.9
== END | disposition home or self-care (01) ==
LOC: D.CT 08:30
DX: R30.0 Dysuria (principal)

== ENCOUNTER → 2018-11-25 10:18 | Outpatient (CLI) | payer MEDICARE, OTHER ==
[2018-11-06 09:08] VITALS: BMI 19.1
[2018-11-25 11:04] LABS: BASOPHILS 0.5 % (0-2); EOSINOPHILS 2.1 % (0-7); HEMATOCRIT 27.1 % (36.0-48.0); HEMOGLOBIN 8.4 g/dL (12-16); IMMATURE GRANULOCYTES 0.1 % (0-5); LYMPHOCYTES 19.9 % (15-50); MCH 25.8 pg (26.0-34.0); MCV 83.4 fL (80.0-100.0); MEAN PLATELET VOLUME 9.6 fL (7.4-10.4); MONOCYTES 6.7 % (2-11); NEUTROPHILS 70.7 % (40-80); PLATELET COUNT 529 10x3/uL (130-400); RBC 3.25 10x6/uL (4.00-5.40); RDW 16.2 % (11.5-14.5); WBC 7.6 10x3/uL (4.8-10.8)
== END | disposition home or self-care (01) ==
LOC: D.LAB 10:18 → D.RT 11:00
PROVIDERS: ATTEND Internal Medicine Pulmonary Disease
DX: R50.9 Fever, unspecified (principal); J44.9 Chronic obstructive pulmonary disease, unspecified; J98.4 Other disorders of lung

== ENCOUNTER → 2018-11-27 13:02 | Outpatient (CLI) | payer MEDICARE, OTHER ==
[2018-11-06 09:08] VITALS: BMI 19.1
== END | disposition home or self-care (01) ==
LOC: D.RAD 13:02
PROVIDERS: ATTEND Internal Medicine Gastroenterology
DX: K59.00 Constipation, unspecified (principal)

== ENCOUNTER → 2019-02-01 14:08 | Outpatient (CLI) | payer MEDICARE, OTHER ==
[2018-11-06 09:08] VITALS: BMI 19.1
== END | disposition home or self-care (01) ==
LOC: D.CT 14:00
PROVIDERS: ATTEND Internal Medicine Gastroenterology
DX: M51.36 Other intervertebral disc degeneration, lumbar region (principal)

== ENCOUNTER 2019-07-12 16:25 | Inpatient (IN) | payer MEDICARE, OTHER ==
[~2019-07-12] VITALS: Ht 162.6 cm; Wt 54.4 kg
[2019-07-12 17:17] LABS: BASOPHILS 0.3 % (0-2); EOSINOPHILS 0.7 % (0-7); HEMOGLOBIN 10.3 g/dL (12-16); IMMATURE GRANULOCYTES 0.3 % (0-5); LYMPHOCYTES 10.8 % (15-50); MCH 29.9 pg (26.0-34.0); MCHC 32.2 g/dL (31.0-37.0); MEAN PLATELET VOLUME 9.3 fL (7.4-10.4); NEUTROPHILS 81.9 % (40-80); PLATELET COUNT 535 10x3/uL (130-400); RBC 3.44 10x6/uL (4.00-5.40); RDW 14.2 % (11.5-14.5); WBC 11.8 10x3/uL (4.8-10.8)
[2019-07-12 17:30] LABS: APTT 24.3 SECONDS (22.8-39.4); INR 1.03 (0.85-1.17)
[2019-07-12 17:35] LABS: CALC OSMOLALITY 278 mosm/kg (275-300); CALCIUM 9.2 mg/dL (8.5-10.1); CARBON DIOXIDE 25.2 mmol/L (21.0-32.0); CHLORIDE - SERUM 100 mmol/L (98-107); CREATININE - SERUM 0.9 mg/dL (0.6-1.3); GLUCOSE 178 mg/dL (74-106); POTASSIUM - SERUM 4.3 mmol/L (3.5-5.1); SODIUM 138 mmol/L (136-145); UREA NITROGEN 11 mg/dL (7-18); eGFR NON AFRICAN AMERICAN 65 mL/min (90-120)
[2019-07-12 17:49] VITALS: BP 133/51
[2019-07-12 17:59] LABS: ALBUMIN 3.2 g/dL (3.4-5.0); ALKALINE PHOSPHATASE 78 U/L (46-116); ALT (SGPT) 11 U/L (10-68); BILIRUBIN - TOTAL 0.21 mg/dL (0.2-1.3); CKMB 1.5 U/L (0.0-3.6); CREATINE KINASE 97 UL (21-215); PRO BNP 491 pg/mL (0-450); PROTEIN - SERUM 7.3 g/dL (6.4-8.2)
[2019-07-12 18:04] LABS: TROPONIN-I 0.098 ng/mL (0.000-0.060)
--- NOTE | 2019-07-12 19:00 | NUR ---
PT SITTING UPRIGHT ON BED. NO S/S OF ACUTE DISTRESS NOTED. PT AND FAMILY UPDATED ON PLAN OF CARE.
--- NOTE | 2019-07-12 19:45 | NUR ---
PT PROVIDED SANDWICH BOX AND DIET SODA. PT SITTING UPRIGHT ON BED.
[2019-07-12 22:27] VITALS: BP 136/61
--- NOTE | 2019-07-12 23:00 | NUR ---
PATIENT TO FLOOR AND ADMISSION HISTORY COMPLETED. FSBS ASSESSED AND TREATED PER ORDER. CALL TO DR. MICHELE CONCERNING MEDS. ORDERS RECEIVED. PATIENT CALM AND WEARING O2 AT 3L. DENIES FURTHER NEEDS. INSTRUCTED ON USE OF CALL LIGHT. DENIES FURTHER NEEDS. SIGNED RISSA REFUSAL FORM. CPOC.
[2019-07-12] MEDS ORDERED: TEMAZEPAM30 MG PO (23:36)
[2019-07-13] VITALS: BP 136/61
[2019-07-13 00:51] LABS: CREATINE KINASE 106 UL (21-215)
[2019-07-13 01:13] LABS: CKMB 1.3 U/L (0.0-3.6)
[2019-07-13 04:00] VITALS: BP 128/65
--- NOTE | 2019-07-13 07:05 | NUR ---
ALERT AND ORIENTED, RESTING IN BED. FAMILY AT BEDSIDE. NO C/O PAIN. NO S/S OF ACUTE DISTRESS NOTED. UP WITH CANE. IV TO RIGHT WRIST, SL. SITE PATENT WITHOUT REDNESS OR SWELLING. ON TELEMETRY [address] ST. DENIES ANY NEEDS AT THIS TIME. CALL LIGHT IN REACH. WILL CONTINUE TO MONITOR.
[2019-07-13 07:27] LABS: ALBUMIN 2.9 g/dL (3.4-5.0); ALKALINE PHOSPHATASE 77 U/L (46-116); ALT (SGPT) 13 U/L (10-68); BILIRUBIN - TOTAL 0.14 mg/dL (0.2-1.3); CALC OSMOLALITY 286 mosm/kg (275-300); CARBON DIOXIDE 27.5 mmol/L (21.0-32.0); CHLORIDE - SERUM 102 mmol/L (98-107); CKMB 0.9 U/L (0.0-3.6); CREATINE KINASE 97 UL (21-215); CREATININE - SERUM 0.9 mg/dL (0.6-1.3); GLUCOSE 319 mg/dL (74-106); POTASSIUM - SERUM 4.3 mmol/L (3.5-5.1); PROTEIN - SERUM 7.5 g/dL (6.4-8.2); SODIUM 137 mmol/L (136-145); TROPONIN-I 0.038 ng/mL (0.000-0.060); UREA NITROGEN 15 mg/dL (7-18); eGFR NON AFRICAN AMERICAN 65 mL/min (90-120)
[2019-07-13 07:28] LABS: BASOPHILS 0 % (0-2); EOSINOPHILS 0 % (0-7); HEMATOCRIT 35.3 % (36.0-48.0); HEMOGLOBIN 11.2 g/dL (12-16); IMMATURE GRANULOCYTES 0.2 % (0-5); LYMPHOCYTES 6.8 % (15-50); MCH 29.6 pg (26.0-34.0); MCHC 31.7 g/dL (31.0-37.0); MCV 93.4 fL (80.0-100.0); MEAN PLATELET VOLUME 9.8 fL (7.4-10.4); MONOCYTES 0.4 % (2-11); NEUTROPHILS 92.6 % (40-80); RBC 3.78 10x6/uL (4.00-5.40); RDW 14.4 % (11.5-14.5)
[2019-07-13 07:29] LABS: PLATELET COUNT 643 10x3/uL (130-400); WBC 4.9 10x3/uL (4.8-10.8)
--- NOTE | 2019-07-13 07:37 | MORECARE ---
CASE MANAGEMENT DISCHARGE SUMMARY PATIENT: VERNON BOLTON UNIT: [id number] ADM DATE: 07/12/19 AGE: 74 : 44 SEX: F ROOM/BED: D.2238 AUTHOR: BETTY WINSTON PHYSICIAN: REFERRING PHYSICIAN: ANSON MICHELE MD DATE OF SERVICE: 07/13/19 Discharge Plan Patient Name: VERNON BOLTON [facility] [facility] 1945 Planned Disposition: Home Anticipated Discharge Date: 07/15/19 Discharge Date: Expected LOS: 3 Initial Reviewer: [email or web address] Initial Review Date: 07/12/2019 Generated: 07/13/19 8:36 am DCPIA - Discharge Planning Initial Assessment Updated by [email or web address]: Socorro Ocasio on 07/13/19 7:34 am * Is the patient Alert and Oriented? Yes * PCP Dr. Sidhu * Pharmacy [facility] on [address] * Preadmission Environment Home with Family * ADLs Partial Dependent * Partial ADLs (Assistance needed) Dressing * Equipment Bedside Commode Cane Glucometer Nebulizer Oxygen Rolling Walker Wheelchair * List name and contact numbers for known caregivers / representatives who currently or will assist patient after discharge: Mery Flores - daughter - [phone] * Verbal permission to speak to the caregivers and representatives has been obtained from the patient. Yes * Community resources currently utilized None * Additional services required to return to the preadmission environment? No * Can the patient safely return to the preadmission environment? Yes * Has this patient been hospitalized within the prior 30 days at any hospital? No Patient Name: VERNON BOLTON Page 31887 at 0737 All edits/amendments must be made on the electronic document DICTATION DATE: 07/13/19735 WORKING SECOND HAND: BREANNE 07/13/19735 RPT#: [id number] DC DATE: STATUS: ADM IN [facility] [address] [place] [address] END OF REPORT
--- NOTE | 2019-07-13 07:43 | MORECARE ---
CASE MANAGEMENT DISCHARGE SUMMARY PATIENT: VERNON BOLTON UNIT: [id number] ADM DATE: 07/12/19 AGE: 74 : 44 SEX: F ROOM/BED: D.2238 AUTHOR: BETTY WINSTON PHYSICIAN: REFERRING PHYSICIAN: ANSON MICHELE MD DATE OF SERVICE: 07/13/19 Discharge Plan Patient Name: VERNON BOLTON Facility: [facility]:[place] : 1945 Planned Disposition: Home Anticipated Discharge Date: 07/15/19 Discharge Date: Expected LOS: 3 Initial Reviewer: [email or web address] Initial Review Date: 07/12/2019 Generated: 07/13/19 8:43 am DCP- Discharge Planning Updated by [email or web address]: Socorro Ocasio on 07/13/19 6:[address] DC PLAN: Home with . ANTICIPATED DC NEEDS: denied known dc needs at time of assessment in the ER. CM met with patient and her daughter to complete initial dc planning assessment. CM educated patient on the CM role and verbal consent given by patient to complete assessment. CM verified patient's address, phone number, and emergency contact phone numbers. Patient lives at home with her . She requires necessitate at times with dressing. She also requires assistance with house cleaning. At discharge patient plans to return and feels this is a safe discharge. CM discussed availability of home health, rehab services, and medical equipment. She was adamant that she does not want home health at me. Patient denied known discharge needs at this time. Transportation provider at discharge will be her daughter. CM will continue to follow and will assist as needed with dc plans/needs. Socorro Ocasio RN, [facility] DCPIA - Discharge Planning Initial Assessment Updated by [email or web address]: Socorro Ocasio on 07/13/19 7:34 am * Is the patient Alert and Oriented? Yes * PCP Dr. Sidhu * Pharmacy [facility] on [address] * Preadmission Environment Home with Family * ADLs Partial Dependent * Partial ADLs (Assistance needed) Dressing * Equipment Bedside Commode Cane Glucometer Nebulizer Oxygen Rolling Walker Wheelchair * List name and contact numbers for known caregivers / representatives who currently or will assist patient after discharge: Mery Flores - daughter - [phone] * Verbal permission to speak to the caregivers and representatives has been obtained from the patient. Yes * Community resources currently utilized None * Additional services required to return to the preadmission environment? No * Can the patient safely return to the preadmission environment? Yes * Has this patient been hospitalized within the prior 30 days at any hospital? No Last DP export: 07/13/19 6:37 am Patient Name: VERNON BOLTON Page [id number] at 0743 All edits/amendments must be made on the electronic document DICTATION DATE: 07/13/19742 RADIO EQUIPMENT INSTALLER: BREANNE 07/13/19742 RPT#: [id number] DC DATE: STATUS: ADM IN [facility] [address] [place] [address] END OF REPORT
[2019-07-13 08:01] VITALS: BP 127/73
[2019-07-13 08:58] VITALS: Ht 162.6 cm; Wt 54.4 kg
--- NOTE | 2019-07-13 12:12 | MORECARE ---
CASE MANAGEMENT DISCHARGE SUMMARY PATIENT: VERNON BOLTON UNIT: [id number] ADM DATE: 07/12/19 AGE: 74 : 44 SEX: F ROOM/BED: D.2238 AUTHOR: BETTY WINSTON PHYSICIAN: REFERRING PHYSICIAN: ANSON MICHELE MD DATE OF SERVICE: 07/13/19 Discharge Plan Patient Name: VERNON BOLTON Facility: [facility]:[place] : 1945 Planned Disposition: Home Anticipated Discharge Date: 07/15/19 Discharge Date: Expected LOS: 3 Initial Reviewer: [email or web address] Initial Review Date: 07/12/2019 Generated: 07/13/19 1:12 pm Comments DCP- Discharge Planning Updated by [email or web address]: Flor Cross on 07/13/19 11:[address] Patient Name: VERNON BOLTON Encounter No: [id number] : 1945 Primary Insurance: MEDICARE A & B Anticipated DC Date: 07-15-2019 Planned Disposition: Home External Planned Provider: : DCP follow-up note: Patient and family in agreement with discharge plan. No changes to plan. Case management will follow and assist as needed. Flor Cross DCP- Discharge Planning Updated by [email or web address]: Socorro Ocasio on 07/13/19 6:[address] DC PLAN: Home with . ANTICIPATED DC NEEDS: denied known dc needs at time of assessment in the ER. CM met with patient and her daughter to complete initial dc planning assessment. CM educated patient on the CM role and verbal consent given by patient to complete assessment. CM verified patient's address, phone number, and emergency contact phone numbers. Patient lives at home with her . She requires necessitate at times with dressing. She also requires assistance with house cleaning. At discharge patient plans to return and feels this is a safe discharge. CM discussed availability of home health, rehab services, and medical equipment. She was adamant that she does not want home health at [place]. Patient denied known discharge needs at this time. Transportation provider at discharge will be her daughter. CM will continue to follow and will assist as needed with dc plans/needs. Socorro Ocasio RN, [facility] DCPIA - Discharge Planning Initial Assessment Updated by [email or web address]: Socorro Ocasio on 07/13/19 7:34 am * Is the patient Alert and Oriented? Yes * PCP Dr. Sidhu * Pharmacy [facility] on [address] * Preadmission Environment Home with Family * ADLs Partial Dependent * Partial ADLs (Assistance needed) Dressing * Equipment Bedside Commode Cane Glucometer Nebulizer Oxygen Rolling Walker Wheelchair * List name and contact numbers for known caregivers / representatives who currently or will assist patient after discharge: Mery Flores - daughter - [phone] * Verbal permission to speak to the caregivers and representatives has been obtained from the patient. Yes * Community resources currently utilized None * Additional services required to return to the preadmission environment? No * Can the patient safely return to the preadmission environment? Yes * Has this patient been hospitalized within the prior 30 days at any hospital? No Last DP export: 07/13/19 6:43 am Patient Name: VERNON BOLTON Page 69851 at 1212 All edits/amendments must be made on the electronic document DICTATION DATE: 07/13/19 121 CASE ASSEMBLER: BREANNE 07/13/19 1212 RPT#: [id number] DC DATE: STATUS: ADM IN [facility] [address] [place] [address] END OF REPORT
--- NOTE | 2019-07-13 12:44 | NUR ---
LYING IN BED,WITHOUT DISTRESS.FAMILY AT BEDSIDE
--- NOTE | 2019-07-13 12:46 | NUR ---
DISCHARGED PATIENT HOME WITH FAMILY VIA WHEELCHAIR, ACCOMPANIED BY HOSPITAL STAFF. DISCONTINUED IV, CATHETER TIP INTACT. WENT OVER DISCHARGE INSTRUCTIONS WITH PATIENT AND FAMILY, VERBALIZED UNDERSTANDING. DENIES ANYTHING FURTHER.
--- NOTE | 2019-07-14 18:19 | MORECARE ---
CASE MANAGEMENT DISCHARGE SUMMARY PATIENT: VERNON BOLTON UNIT: [id number] ADM DATE: 07/12/19 AGE: 74 : 44 SEX: F ROOM/BED: D.2238 AUTHOR: BETTY WINSTON PHYSICIAN: REFERRING PHYSICIAN: ANSON MICHELE MD DATE OF SERVICE: 07/14/19 Discharge Plan Patient Name: VERNON BOLTON Facility: [facility]:[place] : 1945 Planned Disposition: Home Anticipated Discharge Date: 07/15/19 Discharge Date: 07/13/2019 Expected LOS: 3 Initial Reviewer: [email or web address] Initial Review Date: 07/12/2019 Generated: 07/14/19 7:18 pm Comments DCP- Discharge Planning Updated by [email or web address]: Flor Cross on 07/13/19 11:[address] Patient Name: VERNON BOLTON Encounter No: [id number] : 1945 Primary Insurance: MEDICARE A & B Anticipated DC Date: 07-15-2019 Planned Disposition: Home External Planned Provider: : DCP follow-up note: Patient and family in agreement with discharge plan. No changes to plan. Case management will follow and assist as needed. Flor Cross DCP- Discharge Planning Updated by [id number]: Socorro Ocasio on 07/13/19 6:[address] DC PLAN: Home with . ANTICIPATED DC NEEDS: denied known dc needs at time of assessment in the ER. CM met with patient and her daughter to complete initial dc planning assessment. CM educated patient on the CM role and verbal consent given by patient to complete assessment. CM verified patient's address, phone number, and emergency contact phone numbers. Patient lives at home with her . She requires necessitate at times with dressing. She also requires assistance with house cleaning. At discharge patient plans to return and feels this is a safe discharge. CM discussed availability of home health, rehab services, and medical equipment. She was adamant that she does not want home health at or. Patient denied known discharge needs at this time. Transportation provider at discharge will be her daughter. CM will continue to follow and will assist as needed with dc plans/needs. Socorro Ocasio RN, [facility] DCPIA - Discharge Planning Initial Assessment Updated by [email or web address]: Socorro Ocasio on 07/13/19 7:34 am * Is the patient Alert and Oriented? Yes * PCP Dr. Sidhu * [facility] [address] * Preadmission Environment Home with Family * ADLs Partial Dependent * Partial ADLs (Assistance needed) Dressing * Equipment Bedside Commode Cane Glucometer Nebulizer Oxygen Rolling Walker Wheelchair * List name and contact numbers for known caregivers / representatives who currently or will assist patient after discharge: Mery Flores - daughter - [phone] * Verbal permission to speak to the caregivers and representatives has been obtained from the patient. Yes * Community resources currently utilized None * Additional services required to return to the preadmission environment? No * Can the patient safely return to the preadmission environment? Yes * Has this patient been hospitalized within the prior 30 days at any hospital? No Last DP export: 07/13/19 11:12 am Patient Name: VERNON BOLTON Page 55161 at 1819 All edits/amendments must be made on the electronic document DICTATION DATE: 07/14/191817 JOURNEYMAN MACHINIST: BREANNE 07/14/191817 RPT#: [id number] DC DATE:07/13/19 STATUS: DIS IN [facility] [address] [place] [address] END OF REPORT
--- NOTE | 2019-07-17 18:25 | HP ---
PATIENT: VERNON BOLTON MEDICAL RECORD: [id number] ACCOUNT: [id number] LOCATION:D.MS [address] : 43 ADMISSION DATE: 07/12/19 PCP: TREY JORGE MD HISTORY AND PHYSICAL EXAMINATION DATE OF ADMISSION: 07/12/2019 CHIEF COMPLAINT: Shortness of breath. HISTORY OF PRESENT ILLNESS: This is a 74-year-old female who has COPD, continues to smoke, history of coronary artery disease, who has had increased shortness of breath for the last 3 days. She states this afternoon it really scared her because she could hardly get her breath. She was brought to the Emergency Department. She states she may have had a little chest pain. She does have a history of coronary artery disease followed by Dr. Delaney and apparently has not had classic anginal symptoms when she has had stents. In the ER, CBC was essentially normal as well as the basic metabolic panel, troponin was elevated at 0.098. Chest x-ray showed no infiltrate. She is admitted for COPD exacerbation, elevated troponin with a history of coronary artery disease. PAST MEDICAL HISTORY: Diabetes, coronary artery disease, hypertension, COPD, osteoarthritis, chronic back pain, and GERD. 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 ALLERGIES: IBUPROFEN, DEMEROL, SULFA, VERSED, AND DOXYCYCLINE. HABITS: She continues to smoke. Denies alcohol or illicit drug use. SOCIAL HISTORY: Retired, . FAMILY HISTORY: Father is . He had diabetes and heart disease. Mother is . She had diabetes and heart disease. REVIEW OF SYSTEMS: GENERAL: No major weight changes. She is frail. HEENT: No particular sinus or allergy problems. RESPIRATORY: She has COPD and asthma, followed by Dr. Schreiber. CARDIAC: She has a history of coronary artery disease with stents followed by Dr. Delaney. GASTROINTESTINAL: She has had a history of reflux, peptic ulcer disease. GENITOURINARY: No significant problems there. MUSCULOSKELETAL: She has had osteoarthritis. She has chronic low back pain. She has had a knee replaced. NEUROLOGIC: No migraines or seizures. PSYCHIATRIC: No depression or melancholia. HOME MEDICATIONS: Include Atrovent HFA 4 times a day, Plavix 75 mg once a day, which she and her daughter state she stopped on 07/07/2019 in anticipation of getting some lumbar epidural injections, Bystolic 5 mg once a day, aspirin 81 mg once a day, Percocet 10 mg one 4 times a day, temazepam 30 mg 1 at bedtime, calcium plus vitamin D once a day, Flonase nasal spray daily, lansoprazole 30 mg HISTORY AND PHYSICAL [id number] VERNON BOLTON once a day, Zofran 4 mg p.o. q. 6 to 8 hours p.r.n. nausea, Levemir 24 units at bedtime, Humalog 50/50 14 units subcutaneously as a sliding scale, Combivent inhaler q. 4-6 hours, Biotin 10 mg daily, and nitroglycerin spray 1 spray sublingually p.r.n. PHYSICAL EXAMINATION: VITAL SIGNS: Initially in the ER, she was afebrile with the heart rate when she presented was 120, respirations 20, blood pressure 123/72. Tonight when I saw her, respirations were 20, blood pressure 129/48, her heart rate was 93, pulse ox is 96%. GENERAL: This is a frail female, does not appear in acute distress at this time. SKIN: Warm and dry. HEENT: Unremarkable. NECK: Supple. No JVD or bruit. HEART: Regular rate and rhythm. LUNGS: Fairly clear. She has distant breath sounds. No wheezes at this time. ABDOMEN: Soft, nontender. EXTREMITIES: No edema. NEUROLOGIC: Intact. No focal motor or sensory deficits seen. LABORATORY DATA: CBC with a white count of 11,800, hemoglobin 10.3. INR 1.03. Basic metabolic panel is all normal. Liver enzymes are all normal. Troponin is elevated at 0.098, proBNP 491. ABG, pH 7.449, pCO2 of 34, pO2 of 73. Chest x-ray shows no acute process. ASSESSMENT: 1. Chronic obstructive pulmonary disease exacerbation. 2. Elevated troponin. 3. History of coronary artery disease. 4. Current smoker. PLAN: We will admit, treat her COPD. She may need referral to powerplant operator. With the elevated troponin we will check serial cardiac enzymes and consult Dr. Delaney. Other tests and procedures as warranted. TRANSINT:[id number] Voice Confirmation ID: [id number] DOCUMENT ID: [id number] HISTORY AND PHYSICAL [id number] VERNON BOLTON WILLIAM MD at 1825 CC: [id number] DICTATION DATE: 07/13/1911 ENGINEER OF SYSTEM DEVELOPMENT: 07/13/19 0112 DIS IN 07/13/19 [facility] [address] [facility] [place] [address]
== END 2019-07-13 13:05 | disposition home or self-care (01) | DRG 192 ==
LOC: D.ER 16:25 → D.MS 18:39
PROVIDERS: Family Medicine; ADMIT Family Medicine; ATTEND Family Medicine
DX: J44.1 Chronic obstructive pulmonary disease with (acute) exacerbation (principal); I25.119 Atherosclerotic heart disease of native coronary artery with unspecified angina pectoris; R79.89 Other specified abnormal findings of blood chemistry; I10 Essential (primary) hypertension; M19.90 Unspecified osteoarthritis, unspecified site; M54.9 Dorsalgia, unspecified; K21.9 Gastro-esophageal reflux disease without esophagitis

== ENCOUNTER → 2019-10-14 10:34 | Outpatient (CLI) | payer MEDICARE, OTHER ==
[~2019-10-14 10:34] MED LIST changes: +TEMAZEPAM30 MG PO
== END | disposition home or self-care (01) ==
LOC: D.HCCECHO 10:34
PROVIDERS: ATTEND Internal Medicine Interventional Cardiology
DX: I25.10 Atherosclerotic heart disease of native coronary artery without angina pectoris (principal)

== ENCOUNTER → 2019-11-10 10:03 | Outpatient (CLI) | payer MEDICARE, OTHER | END | disposition home or self-care (01) | LOC: D.CT 10:00 | DX: N20.0 Calculus of kidney (principal) ==

== ENCOUNTER → 2020-03-07 15:08 | Outpatient (CLI) | payer MEDICARE, OTHER | END | disposition home or self-care (01) | LOC: D.LAB 15:08 | PROVIDERS: ATTEND Internal Medicine Pulmonary Disease | DX: J44.9 Chronic obstructive pulmonary disease, unspecified (principal) ==